=== PATIENT | female | born 1985 | race Caucasian/White ===

== ENCOUNTER 2016-11-13 04:15 | Emergency (ER) | payer BC, OTHER ==
[~2016-11-13] VITALS: Ht 170.2 cm; Wt 73.7 kg
[~2016-11-13 04:15] MED LIST: ADVIN25050 INH; ALBU1AER9 INH; AVLX/400 PO; PRED10TA PO; PRENTAB26 PO
[2016-11-13 04:20] VITALS: TEMP 36.6; Ht 170.2 cm; Wt 73.7 kg
[2016-11-13] MEDS ORDERED: SODIUM CHLORIDE 0.9% 1000ML 1,000 ML IV STA (04:35)
[2016-11-13] MEDS ORDERED: SODIUM CHLORIDE 0.9% 1000ML 1,000 ML IV ONE (04:35)
--- NOTE | 2016-11-13 04:43 | EMERGENCY ROOM VISIT NOTE ---
History Report prepared by Ginna: Carolyn Mcgregor Under the Supervision of: Dr. Hans Castillo M.D. First contact with patient: 04:24 Chief Complaint: ABDOMINAL PAIN Stated Complaint: ABDOMINAL PAIN,CRAMPS History of Present Illness The patient is a 31 year old female who presents to the Emergency Room with complaints of intermittent upper abdominal pain that began yesterday morning. She currently rates her discomfort as a 6/10 in severity. The patient states that each episode lasts 3-10 seconds, and denies that her pain feels similar to menstrual cramps. The patient states that she is currently 3.5 weeks . She states that she had no complications and had a vaginal delivery. The patient states that she is still having light bleeding and denies any lower abdominal pain. She denies any hematuria. The patient states that she started having diarrhea. She notes that she is currently has a headcold. The patient states that she is currently breast feeding, denying any breast tenderness or redness. She denies any current sore throat. The patient denies any previous surgeries. She notes a history of asthma. The patient denies any increased pain with breathing. She states that she just had her fourth baby, noting that she has had 5 previous pregnancies. Source of History: patient Onset: yesterday morning Position: abdomen (upper) Symptom Intensity: 6/10 Timing: intermittent Associated Symptoms: + diarrhea, No urinary symptoms Note: Associated symptoms: headcold Review of Systems See HPI for pertinent positives & negatives. A total of 10 systems reviewed and were otherwise negative. Past Medical & Surgical Medical Problems: (1) Asthma Old medical records were reviewed. Nurse's notes were reviewed and I agree with. Family History Diabetes mellitus FH: lung disease FHx: cancer Hypertension Seizures Social History Smoking Status: Never Smoker Alcohol Use: none Drug Use: none Marital Status: Housing Status: lives with family Current/Historical Medications Scheduled Mometasone Furoate-Formoterol (Dulera 100/5 Mcg), 2 PUFFS INH BID Multivit/Min/Iron/Fol Ac/Pren ( Vitamin), 1 TAB PO DAILY Scheduled PRN Albuterol Hfa (Ventolin Hfa), 2 PUFFS INH Q4H PRN for SOB/Wheezing Allergies Coded Allergies: No Known Allergies (Unverified , 11/13/16) Physical Exam Vital Signs Date Time Temp Pulse Resp B/P Pulse Ox O2 Delivery O2 Flow Rate FiO2 11/13/16 06:04 93 16 107/66 97 Room Air 11/13/16 04:20 36.6 78 20 110/80 96 Room Air Physical Exam General: Well developed well nourished, non-ill appearing young female, in no acute distress, breathing comfortably on room air. Normal speech HEENT: Normal cephalic atraumatic. Pupils are equal round and reactive to light. Extraocular movements are intact. Oropharynx is pink with moist mucous membranes. No swelling of the mouth lips or tongue. Neck: Supple with a midline trachea. No meningeal signs or stiffness, no JVD or bruits. No Stridor. Chest: Clear to auscultation bilaterally. No wheezes or rhonchi. No increased work of breathing. Heart: regular rate and rhythm. Abdomen: Minimally tender in the upper abdomen bilaterally. No mass. No lower abdominal tenderness. Negative hearn's sign. Soft, nondistended without rebound guarding or rigidity. Extremities: No cyanosis clubbing or edema. No calf tenderness or assymetry Spine/Back. Non tender to palpation. No CVA tenderness Skin: Good turgor without rashes. Neurologic exam: Cranial nerves two through 12 are intact. Motor and sensation are intact and symmetrical throughout. Medical Decision & Procedures ER Provider Diagnostic Interpretation: Chest x-ray per my interpretation reveals no pneumothorax, failure, or infiltrate. US results as stated below per my review and radiologist interpretation: US RUQ: No gallstones or evidence of cholecystitis. Caliber CBD upper limits normal. Possible mild right hydronephrosis. Correlate with UA. Liver prominent in size. Radiologist: Clarence Ramon MD Study ready at 0638 and inital results transmitted at 0675 Laboratory Results 11/13/16 04:45 Red Blood Count 5.14, Mean Corpuscular Volume 80.5, Mean Corpuscular Hemoglobin 26.7, Mean Corpuscular Hemoglobin Concent 33.1, Mean Platelet Volume 9.6, Neutrophils (%) (Auto) 84.1, Lymphocytes (%) (Auto) 8.7, Monocytes (%) (Auto) 5.2, Eosinophils (%) (Auto) 1.7, Basophils (%) (Auto) 0.2, Neutrophils # (Auto) 7.29, Lymphocytes # (Auto) 0.75, Monocytes # (Auto) 0.45, Eosinophils # (Auto) 0.15, Basophils # (Auto) 0.02 11/13/16 04:45 Test 11/13/16 04:45 11/13/16 04:50 White Blood Count 8.67 K/uL (4.8-10.8) Red Blood Count 5.14 M/uL (4.2-5.4) Hemoglobin 13.7 g/dL (12.0-16.0) Hematocrit 41.4 % (37-47) Mean Corpuscular Volume 80.5 fL (80-100) Mean Corpuscular Hemoglobin 26.7 pg (25-34) Mean Corpuscular Hemoglobin Concent 33.1 g/dl (32-36) Platelet Count 270 K/uL (130-400) Mean Platelet Volume 9.6 fL (7.4-10.4) Neutrophils (%) (Auto) 84.1 % Lymphocytes (%) (Auto) 8.7 % Monocytes (%) (Auto) 5.2 % Eosinophils (%) (Auto) 1.7 % Basophils (%) (Auto) 0.2 % Neutrophils # (Auto) 7.29 K/uL (1.4-6.5) Lymphocytes # (Auto) 0.75 K/uL (1.2-3.4) Monocytes # (Auto) 0.45 K/uL (0.11-0.59) Eosinophils # (Auto) 0.15 K/uL (0-0.5) Basophils # (Auto) 0.02 K/uL (0-0.2) RDW Standard Deviation 43.1 fL (36.4-46.3) RDW Coefficient of Variation 14.8 % (11.5-14.5) Immature Granulocyte % (Auto) 0.1 % Immature Granulocyte # (Auto) 0.01 K/uL (0.00-0.02) Anion Gap 8.0 mmol/L (3-11) Est Creatinine Clear Calc Drug Dose 100.4 ml/min Estimated GFR () 115.6 Estimated GFR (Non- 99.8 BUN/Creatinine Ratio 20.0 (10-20) Calcium Level 9.0 mg/dl (8.5-10.1) Total Bilirubin 0.5 mg/dl (0.2-1) Direct Bilirubin < 0.1 mg/dl (0-0.2) Aspartate Amino Transf (AST/SGOT) 20 U/L (15-37) Alanine Aminotransferase (ALT/SGPT) 40 U/L (12-78) Alkaline Phosphatase 155 U/L (45-117) Total Protein 7.9 gm/dl (6.4-8.2) Albumin 3.9 gm/dl (3.4-5.0) Lipase 171 U/L (73-393) Urine Color YELLOW Urine Appearance CLEAR (CLEAR) Urine pH 5.0 (4.5-7.5) Urine Specific [place] 1.027 (1.000-1.030) Urine Protein NEG (NEG) Urine Glucose (UA) NEG (NEG) Urine Ketones NEG (NEG) Urine Occult Blood 3+ (NEG) Urine Nitrite NEG (NEG) Urine Bilirubin NEG (NEG) Urine Urobilinogen NEG (NEG) Urine Leukocyte Esterase TRACE (NEG) Urine WBC (Auto) 1-5 /hpf (0-5) Urine RBC (Auto) 10-30 /hpf (0-4) Urine Hyaline Casts (Auto) 1-5 /lpf (0-5) Urine Epithelial Cells (Auto) >30 /lpf (0-5) Urine Bacteria (Auto) NEG (NEG) Laboratory studies as stated above per my review. Medications Administered Medications (Trade) Dose Ordered Sig/Karla Route Start Time Stop Time Status Last Admin Dose Admin Sodium Chloride 1,000 ml @ 999 mls/hr Q1H1M STAT IV 11/13/16 04:35 11/13/16 05:35 DC 11/13/16 04:35 999 MLS/HR Sodium Chloride (Nss 1000ml) 1,000 ml @ 150 mls/hr Q6H40M ONCE IV 11/13/16 04:35 11/13/16 10:00 DC 11/13/16 04:35 150 MLS/HR ED Course 0426: Past medical records reviewed. The patient was evaluated in room B10, and a complete history and physical examination were performed. 0435: Ordered Sodium Chloride 1000 ml @ 150 mls/hr IV, Sodium Chloride 1000 ml @ 999 mls/hr IV. 0626: I reevaluated the patient and she is resting comfortably. I discussed the exam findings with her and I discussed the treatment plan. She verbalized complete understanding and agreement. She is ready to go home. Medical Decision Differentials include, but are not limited to; pneumonia, bronchitis, pancreatitis, gallbladder disease, complication, UTI. This patient comes in as described above. She was placed in room B10. She is here for treatment and evaluation of intermittent upper abdominal pain. She is 3 weeks and has had no lower abdominal pain or bleeding or cramping. She's had no fever or chills. She's had no shortness breath or pleurisy. She had a cough and URI type symptom.s she is breast-feeding. She has had no breast tenderness or swelling. IV access established. She was hydrated with IV normal saline. She's had nausea, vomiting, diarrhea, and this is most likely is a viral illness blood work was obtained and data gallbladder ultrasound as well as a chest x-ray here urinalysis and culture was also ordered. Blood work was unremarkable. She has nothing to suggest infection or sepsis. She is nothing to suggest this is related to her she's no lower abdominal tenderness. Her gallbladder ultrasound was negative. Chest x- ray was unremarkable. She will be discharged home. I encouraged to follow-up with her regular doctor. Return if: increasing pain, worsening of symptoms, fever chills, any new problems or concerns. Impression Primary Impression: Upper abdominal pain Scribe Attestation The scribe's documentation has been prepared under my direction and personally reviewed by me in its entirety. I confirm that the note above accurately reflects all work, treatment, procedures, and medical decision making performed by me. Departure Information Dispostion Home / Self-Care Referrals Elsa White (PCP) Forms Call Back Authorization, HOME CARE DOCUMENTATION FORM, IMPORTANT VISIT INFORMATION Patient Instructions [facility] Additional Instructions Rest. Drink plenty of fluids. Return if: Increasing pain, fever or chills, worsening symptoms, lower abdominal pain, any new problems or concerns Use ibuprofen 400 mg every 6 hours as needed. Take with food May also use Tylenol/acetaminophen a maximum 650 mg every 6 hours. Do not take with any other medications that contain Tylenol/acetaminophen Follow-up with your doctor in 1-2 days for recheck.
[2016-11-13 05:08] LABS: BASO % 0.2 %; BASO ABS # 0.02 K/uL (0-0.2); COMPLETE YES; EOS % 1.7 %; HEMATOCRIT 41.4 % (37-47); IG% 0.1 %; LYMPH % 8.7 %; LYMPH ABS # 0.75 K/uL (1.2-3.4); MEAN CELL VOLUME 80.5 fL (80-100); MEAN CORPUSCULAR HEMOGLOBIN 26.7 pg (25-34); MEAN CORPUSCULAR HGB CONC 33.1 g/dl (32-36); MEAN PLATELET VOLUME 9.6 fL (7.4-10.4); MONO % 5.2 %; NEUT % 84.1 %; PLATELET COUNT 270 K/uL (130-400); RED BLOOD COUNT 5.14 M/uL (4.2-5.4); WHITE BLOOD COUNT 8.67 K/uL (4.8-10.8)
[2016-11-13 05:19] LABS: URINE APPEARANCE CLEAR (CLEAR); URINE BILIRUBIN NEG (NEG); URINE COLOR YELLOW; URINE EPITHELIAL CELL AUTO >30 /lpf (0-5); URINE NITRITE NEG (NEG); URINE SPECIFIC GRAVITY 1.027 (1.000-1.030); UROBILINOGEN NEG (NEG)
[2016-11-13 05:24] LABS: ALT/SGPT 40 U/L (12-78); AST/SGOT 20 U/L (15-37); BLOOD UREA NITROGEN 16 mg/dl (7-18); CARBON DIOXIDE 26 mmol/L (21-32); CHLORIDE 107 mmol/L (98-107); CREATININE 0.79 mg/dl (0.60-1.20); GLUCOSE 107 mg/dl (70-99); POTASSIUM 3.8 mmol/L (3.5-5.1); SODIUM 141 mmol/L (136-145)
[2016-11-13 05:25] LABS: MANUAL MICROSCOPIC REQUIRED? NO; REVIEW REQ? NO
[2016-11-13 05:26] LABS: ALKALINE PHOSPHATASE 155 U/L (45-117)
[2016-11-13 06:04] VITALS: BP 107/66; PULSE 93; O2SAT 97
[2016-11-13] MEDS ORDERED: VNTHFA/IN INH (06:12)
[2016-11-13] MEDS ORDERED: MOME100A INH (06:13)
--- NOTE | 2016-11-13 07:12 | DIAGNOSTIC IMAGING REPORT ---
ABDOMINAL ULTRASOUND, RIGHT UPPER QUADRANT HISTORY: Right upper quadrant abdominal pain. eval for gb disease. COMPARISON: Abdomen and pelvis CT 07/07/2011. FINDINGS: Pancreas: The pancreas demonstrates a normal echotexture. Liver: Mildly enlarged measuring 20 cm in length. Gallbladder: No gallbladder wall thickening. No gallstones. CBD: 5 mm. Right kidney: Mild fullness within the right renal collecting system without irving hydronephrosis. IMPRESSION: 1. Mild hepatomegaly. 2. Normal gallbladder. 3. Mild fullness within the right renal collecting system without irving hydronephrosis. Electronically signed by: Geronimo Newman M.D. 11/13/2016 7:11 AM Dictated Date/Time: 11/13/2016 7:09 AM
--- NOTE | 2016-11-13 07:23 | DIAGNOSTIC IMAGING REPORT ---
CHEST ONE VIEW PORTABLE HISTORY: Atypical CHEST PAIN COMPARISON: Chest 06/09/2013. FINDINGS: The lungs are clear. Cardiac silhouette is normal in size. No pleural effusions. No pneumothorax. IMPRESSION: No acute process. Electronically signed by: Geronimo Newman M.D. 11/13/2016 7:22 AM Dictated Date/Time: 11/13/2016 7:21 AM
== END 2016-11-13 06:39 | disposition home or self-care (01) ==
LOC: C.EDB 04:16
DX: O90.9 Complication of the puerperium, unspecified (principal); R10.10 Upper abdominal pain, unspecified; J45.909 Unspecified asthma, uncomplicated; Z83.3 Family history of diabetes mellitus; Z80.9 Family history of malignant neoplasm, unspecified; Z82.49 Family history of ischemic heart disease and other diseases of the circulatory system; Z82.0 Family history of epilepsy and other diseases of the nervous system

== ENCOUNTER 2023-12-28 11:41 | Inpatient (IN) ==
[2023-12-28] MEDS ORDERED: GENTAMICIN CONSULT ACTIVE PRN (12:22)
[2023-12-28] MEDS ORDERED: GENTAMICIN SULFATE 100 MG in DEXTROSE 5% 100 ML IV STA (12:22)
[2023-12-28] MEDS ORDERED: ceFAZolin 500 MG in SYRINGE 0 ML IV SCH (12:30)
[2023-12-28 12:50] LABS: Basophils # (auto) 0.08 K/uL (0.00-0.20); Basophils % (auto) 0.4 %; Eosinophils # (auto) 0.04 K/uL (0.00-0.50); Eosinophils % (auto) 0.2 %; Hematocrit (blood only) 30.6 % (37.0-47.0); Hemoglobin 10.3 g/dl (12.0-16.0); Immature Granulocytes # (auto) 0.17 K/uL (0.01-0.20); Immature Granulocytes % (auto) 0.8 %; Lymphocytes # (auto) 0.62 K/uL (1.20-3.40); Lymphocytes % (auto) 2.9 %; Mean Corpuscular Hemoglobin 28.8 pg (25.0-34.0); Mean Corpuscular Hgb Conc 33.7 g/dL (32.0-36.0); Mean Corpuscular Volume 85.5 fL (80.0-100.0); Mean Platelet Volume 10.3 fL (9.4-12.4); Monocytes # (auto) 1.48 K/uL (0.11-0.59); Neutrophils # (auto) 18.73 K/uL (1.40-6.50); Neutrophils % (auto) 88.7 %; Platelet Count 253 K/uL (130-400); RDW Coefficient of Variation 12.9 % (11.5-14.5); RDW Standard Deviation 40.1 fL (36.4-46.3); Red Blood Count 3.58 M/uL (4.20-5.40); White Blood Count 21.12 K/ul (4.8-10.8)
[2023-12-28] MEDS: MoRPHine SULFATE 4 MG/ML 1 ML CARP\\VIAL IV PRN (13:12)
[2023-12-28] MEDS ORDERED: ONDANSETRON INJ 2 MG/ML 2 ML VIAL IV PRN (13:19)
[2023-12-28] MEDS: CLINDAMYCIN/D5W 900 MG/50 ML BAG IV SCH (13:19)
[2023-12-28 13:31] LABS: Appearance Urine Clear (Clear); Bacteria Urine Automated 1+ (None Seen); Bilirubin Urine Negative (Negative); Blood Urine Negative (Negative); Cast Urine Automated 0-2 /lpf (0-2); Color Urine Dark Yellow; Glucose Urine UA 2+ (Negative); Ketones Urine 3+ (Negative); Leukocyte Esterase Urine Negative (Negative); Nitrite Urine Negative (Negative); Protein Urine 1+ (Negative); RBC Urine Automated 0-2 /hpf (0-2); Urobilinogen Urine Negative (Negative); pH Urine 5.5 (4.5-7.5)
[2023-12-28 13:52] LABS: Creatinine Clr Calc Pharmacy 172.8 ml/min; Est GFR (African American) 144.2 ml/min; Est GFR (Non-African American) 124.4 ml/min
--- NOTE | 2023-12-28 13:54 | Ultrasound Report ---
US pelvic limited CLINICAL HISTORY: 33 week gestation with severe RLQ pain. COMPARISON STUDY: [facility] 03/21/2023. Abdomen and pelvis CT 07/07/2011. FINDINGS: Real-time sonographic imaging of the right side the abdomen and pelvis was performed with r epresentative images cemented. The appendix was not identified. There is a small amount of gallbladde r sludge. No gallbladder wall thickening. Negative sonographic Magana sign. There are few small cysts within the right ovary measures approximately 1.2 cm. There is normal in size. There is normal color flow within the right ovary. The left ovary was obscured by overlying bowel gas. Mild fullness withi n the right renal collecting system without hydronephrosis. This is likely physiologic. The fetus is in a cephalic presentation and demonstrates a heart rate of 175 bpm. There is a right sided leroy centa which appears intact. IMPRESSION: 1. The appendix was not identified. 2. Normal right ovary. The left ovary was obscured by overlying bowel gas. 3. Gallbladder sludge. No gallbladder wall thickening. 4. heart rate was 175 bpm. ACT 112: Negative or not required by law. Electronically signed by: Geronimo Newman M.D. 12/28/2023 1:53 PM
[2023-12-28] MEDS: LACTATED RINGER'S 1,000 ML IV PRN (13:55)
[2023-12-28] MEDS: ceFAZolin 2000MG 2,000 MG/15 ML SYR IV SCH (13:58)
[2023-12-28] MEDS: GENTAMICIN SULFATE 120 MG in DEXTROSE 5% 100 ML IV ONE (14:03)
[2023-12-28] MEDS: ACETAMINOPHEN 500 MG TAB PO PRN (16:03)
--- NOTE | 2023-12-28 19:19 | Magnetic Resonance Report ---
MR pelvis wo con CLINICAL HISTORY: at 33 weeks RLQ pain TECHNIQUE: Multiplanar multisequence images were obtained of the pelvis without the administration of contrast. COMPARISON: None available at the time of this dictation. FINDINGS: Bowel: The appendix is normal. Lymph nodes: Unremarkable. Bladder: Unremarkable. Kidneys: Unremarkable. Reproductive organs: The fetus is in cephalic position. No gross abnormalities are seen. Vessels: Unremarkable. Abdominal wall: Unremarkable. Bones: Unremarkable. IMPRESSION: No acute abnormalities. The appendix is normal without evidence of appendicitis. The fetus is grossly unremarkable. ACT 112: Negative or not required by law. Electronically signed by: Catalino Marsh M.D. 12/28/2023 7:16 PM
[2023-12-28 21:08] LABS: Albumin Globulin Ratio 1.1 (0.9-2); Albumin Level 3.2 gm/dl (3.4-5.0); BUN Creatinine Ratio 13.6 (10-20); Bilirubin,Total 0.6 mg/dl (0.2-1.0); Calcium 8.3 mg/dl (8.6-10.3); Creatinine Clr Calc Pharmacy 188.5 ml/min; Est GFR (African American) 148.4 ml/min; Est GFR (Non-African American) 128.1 ml/min; Potassium 3.5 mmol/L (3.5-5.1); Total Protein 6.2 gm/dl (6.0-8.3)
[2023-12-28] MEDS: GENTAMICIN SULFATE 120 MG in DEXTROSE 5% 100 ML IV SCH (22:10)
--- NOTE | 2023-12-29 | Progress Note ---
Date of Service December 28, 2023 Assessment & Plan (1) Right lower quadrant abdominal pain during in third trimester: Plan: 1. . (2) UTI in , antepartum: Plan: 1. On triple antibx. antibiotics ampicillin gentamicin Patient maternal and tachycardia have both improved. Patient is not afebrile. Patient tolerated medication and dinner Will reevaluate patient in the morning with new set of labs Results & Data Vital Signs (Past 12 Hours) Vital Signs Temp Pulse Resp BP Pulse Ox O2 Del Method 12/28/23 23:53 96 12/28/23 23:53 99 H 12/28/23 23:48 102 H 12/28/23 23:48 91/47 L 12/28/23 23:45 95 12/28/23 23:45 107 H 12/28/23 23:40 94 12/28/23 23:40 99 H 12/28/23 23:35 94 12/28/23 23:35 99 H 12/28/23 23:30 93 12/28/23 23:30 99 H 12/28/23 23:25 93 12/28/23 23:25 98 H 12/28/23 23:20 93 12/28/23 23:20 99 H 12/28/23 23:15 92 12/28/23 23:15 96 H 12/28/23 23:10 93 12/28/23 23:10 97 H 12/28/23 23:06 90 12/28/23 23:06 94 H 12/28/23 23:05 92 12/28/23 23:05 94 H 12/28/23 23:00 92 12/28/23 23:00 95 H 12/28/23 22:59 90 12/28/23 22:59 95 H 12/28/23 22:55 93 12/28/23 22:55 99 H 12/28/23 22:50 93 12/28/23 22:50 99 H 12/28/23 22:45 93 12/28/23 22:45 97 H 12/28/23 22:40 93 12/28/23 22:40 98 H 12/28/23 22:35 94 12/28/23 22:35 105 H 12/28/23 22:30 93 12/28/23 22:30 99 H 12/28/23 22:25 93 12/28/23 22:25 99 H 12/28/23 22:20 93 12/28/23 22:20 100 H 12/28/23 22:15 93 12/28/23 22:15 102 H 12/28/23 22:10 94 12/28/23 22:10 99 H 12/28/23 22:05 95 12/28/23 22:05 96 H 12/28/23 22:00 95 12/28/23 22:00 94 H 12/28/23 21:55 95 12/28/23 21:55 95 H 12/28/23 21:50 94 12/28/23 21:50 93 H 12/28/23 21:45 94 12/28/23 21:45 94 H 12/28/23 21:40 95 12/28/23 21:40 95 H 12/28/23 21:35 96 12/28/23 21:35 96 H 12/28/23 21:30 97 12/28/23 21:30 102 H 12/28/23 21:30 16 12/28/23 21:30 36.7 C 16 12/28/23 21:25 96 12/28/23 21:25 97 H 12/28/23 20:49 97 12/28/23 20:49 103 H 12/28/23 20:44 97 12/28/23 20:44 102 H 12/28/23 20:39 97 12/28/23 20:39 93 H 12/28/23 20:34 98 12/28/23 20:34 98 H 12/28/23 20:29 96 12/28/23 20:29 97 H 12/28/23 20:24 97 12/28/23 20:24 100 H 12/28/23 20:19 95 12/28/23 20:19 94 H 12/28/23 20:06 96 12/28/23 20:06 101 H 12/28/23 20:01 97 12/28/23 20:01 105 H 12/28/23 19:56 96 12/28/23 19:56 102 H 12/28/23 19:51 96 12/28/23 19:51 102 H 12/28/23 19:46 96 12/28/23 19:46 103 H 12/28/23 19:41 96 05 19:41 106 H 05/06/24 19:36 97 12/28/23 19:36 104 H 12/28/23 19:32 94 12/28/23 19:32 100 H 12/28/23 19:31 94 12/28/23 19:31 100 H 12/28/23 19:26 96 12/28/23 19:26 100 H 12/28/23 19:21 95 12/28/23 19:21 97 H 12/28/23 19:16 36.9 C 16 12/28/23 19:16 Room Air 12/28/23 19:16 95 12/28/23 19:16 107 H 12/28/23 19:15 16 12/28/23 19:15 36.9 C 16 12/28/23 19:14 100 H 12/28/23 19:14 100/54 L 12/28/23 19:11 95 12/28/23 19:11 102 H 12/28/23 19:06 94 12/28/23 19:06 92 H 12/28/23 19:01 95 12/28/23 19:01 99 H 12/28/23 18:56 95 12/28/23 18:56 96 H 12/28/23 18:51 95 12/28/23 18:51 101 H 12/28/23 18:46 95 12/28/23 18:46 98 H 12/28/23 18:41 95 12/28/23 18:41 99 H 12/28/23 18:36 95 12/28/23 18:36 102 H 12/28/23 18:31 95 12/28/23 18:31 94 H 12/28/23 18:26 96 12/28/23 18:26 97 H 12/28/23 18:21 95 12/28/23 18:21 96 H 12/28/23 18:16 96 12/28/23 18:16 103 H 12/28/23 18:11 97 12/28/23 18:11 102 H 12/28/23 18:09 94 12/28/23 18:09 102 H 12/28/23 18:09 90/44 L 12/28/23 18:06 96 12/28/23 18:06 109 H 12/28/23 18:01 95 12/28/23 18:01 99 H 12/28/23 17:56 94 12/28/23 17:56 102 H 12/28/23 17:51 95 12/28/23 17:51 101 H 12/28/23 17:46 96 12/28/23 17:46 103 H 12/28/23 17:41 96 12/28/23 17:41 108 H 12/28/23 17:40 37.2 C 12/28/23 17:39 94 12/28/23 17:39 102 H 12/28/23 17:36 96 12/28/23 17:36 104 H 12/28/23 16:10 94 12/28/23 16:10 122 H 12/28/23 16:08 94 12/28/23 16:08 122 H 12/28/23 16:07 123 H 12/28/23 16:07 92/48 L 12/28/23 16:05 95 12/28/23 16:05 126 H 12/28/23 16:02 94 12/28/23 16:02 117 H 12/28/23 16:00 95 12/28/23 16:00 119 H 12/28/23 15:56 94 12/28/23 15:56 117 H 12/28/23 15:55 22 12/28/23 15:55 39.3 C H 22 12/28/23 15:55 95 12/28/23 15:55 120 H 12/28/23 15:36 94 12/28/23 15:36 124 H 12/28/23 15:35 94 12/28/23 15:35 125 H 12/28/23 15:31 94 12/28/23 15:31 128 H 12/28/23 15:29 94 12/28/23 15:29 126 H 12/28/23 15:26 95 12/28/23 15:26 128 H 12/28/23 15:23 93 12/28/23 15:23 129 H 12/28/23 15:21 95 12/28/23 15:21 132 H 12/28/23 15:17 94 12/28/23 15:17 123 H 12/28/23 15:16 94 12/28/23 15:16 124 H 12/28/23 15:11 94 12/28/23 15:11 118 H 12/28/23 15:10 94 05/06/24 15:10 117 H 12/28/23 15:06 96 12/28/23 15:06 117 H 12/28/23 15:04 94 12/28/23 15:04 127 H 12/28/23 15:01 95 12/28/23 15:01 118 H 12/28/23 14:56 96 12/28/23 14:56 118 H 12/28/23 14:51 96 12/28/23 14:51 118 H 12/28/23 14:46 96 12/28/23 14:46 116 H 12/28/23 14:45 94 12/28/23 14:45 116 H 12/28/23 14:41 96 12/28/23 14:41 119 H 12/28/23 14:36 96 12/28/23 14:36 118 H 12/28/23 14:31 97 12/28/23 14:31 116 H 12/28/23 14:26 98 12/28/23 14:26 118 H 12/28/23 14:21 98 12/28/23 14:21 118 H 12/28/23 14:16 99 12/28/23 14:16 120 H 12/28/23 14:11 99 12/28/23 14:11 119 H 12/28/23 14:10 37.9 C H 20 12/28/23 14:06 99 12/28/23 14:06 121 H 12/28/23 14:01 99 12/28/23 14:01 119 H 12/28/23 13:56 100 12/28/23 13:56 122 H 12/28/23 13:51 100 12/28/23 13:51 114 H 12/28/23 13:46 100 12/28/23 13:46 115 H 12/28/23 13:41 100 12/28/23 13:41 118 H 12/28/23 13:36 100 12/28/23 13:36 126 H 12/28/23 13:31 100 12/28/23 13:31 123 H 12/28/23 13:26 99 12/28/23 13:26 123 H 12/28/23 13:21 100 12/28/23 13:21 122 H 12/28/23 13:16 100 12/28/23 13:16 120 H 12/28/23 13:11 100 12/28/23 13:11 111 H 12/28/23 13:06 100 12/28/23 13:06 117 H 12/28/23 13:01 100 12/28/23 13:01 121 H 12/28/23 12:56 100 12/28/23 12:56 123 H 12/28/23 12:51 100 12/28/23 12:51 117 H 12/28/23 12:46 100 12/28/23 12:46 115 H 12/28/23 12:41 100 12/28/23 12:41 116 H 12/28/23 12:36 100 12/28/23 12:36 117 H 12/28/23 12:31 99 12/28/23 12:31 116 H 12/28/23 12:26 97 12/28/23 12:26 122 H 12/28/23 12:21 98 12/28/23 12:21 120 H 12/28/23 12:16 98 12/28/23 12:16 120 H 12/28/23 12:01 38.9 C H 16 96
--- NOTE | 2023-12-29 00:17 | History & Physical Report ---
Date of Service December 29, 2023 History of Present Illness Chief Complaint: r right lower quadrant pain since Thursday.. Primary Care Provider: Fallon Morris DO Patient patient is a 38-year-old G8, P4 EDC 02/11/2024 making her 33 weeks and 4 days today. Patient present to labor and delivery unannounced. She is a patient of Dr. Carlton and began to experience right lower quadrant pain on S at. Pain has not increasingly gotten worse. She denies any shortness of breath. She had nausea but no vomiting. She denies dysuria urgency or frequency or gross hematuria. She describes the pain as achy nonradiating patient. Denies any history of renal stones in the past or in this . She took Tylenol on the morning of admission with mild improvement in her pain. On arrival to L abor and delivery. pt reports severe discomfort. She rated her pain 7 out of 10 as stated above she had nausea but no vomiting. She denied constipation. Pulse on arrival was in the 120s to 130s. Patient's temperature was 102. There was tachycardia on initial monitoring. IV fluids antibiotics and Tylenol was given to patient. CBC CMP and a right pelvic ultrasound ordered differential d iagnosis at this point included renal etiology bowel obstruction, urinary tract infection, ovarian torsion and appendicitis.. The ultrasound showed no hydronephrosis or renal stones. There was no ovarian torsion. There was good Doppler flow to the right ovary and ovary appeared unremarkable. The appendix however could not be visualized on ultrasound. After discussion with the radiologist an MRI without contrast was ordered. The MRI however was negative for appendicitis. Review of the labs showed elevated white count and urine was positive for bacteria. Patient has responded very well to triple antibiotics treatment and IV hydration and pain i improved with morphine. Allergies Allergy/AdvReac Type Severity Reaction Status Date / Time No Known Allergies Allergy Verified 03/21/23 20:51 Home Medications Medication Instructions Recorded Confirmed Type albuterol sulfate 90 mcg/actuation 1 - 2 puff inhalation QID PRN 11/04/20 12/28/23 History aerosol inhaler Shortness Of Breath Or Wheezing mometasone-formoterol HFA 200 2 puff inhalation BID 11/04/20 12/28/23 History mcg-5 mcg/actuation aerosol inhaler (Dulera) Past Med/Surg History Medical History (Updated 12/28/23 @ 23:55 by Gianni Conway MD) Asthma Surgical History [place] teeth removed Family History Father Epilepsy Social History Smoking Status: Never smoker Do You Dip or Chew Tobacco: No; Hx Alcohol Use: No Hx Substance Use: No Preferred Language: Guatemalan Communication Ability: Effective Mechanical Engineering Director Required: Yes Beliefs That Will Affect Care: None Current Living Situation: Spouse Current Living Situation Comment: home Other Information That Helps Us Care for You: No Feels Safe at Home: Yes Safety Concerns: Feels Safe At This Time Assistive Devices: None Results & Data Results & Data Vital Signs (Past 12 Hours) Vital Signs Temp Pulse Resp BP Pulse Ox O2 Del Method 12/28/23 23:58 97 12/28/23 23:58 96 H 12/28/23 23:53 96 12/28/23 23:53 99 H 12/28/23 23:48 102 H 12/28/23 23:48 91/47 L 12/28/23 23:45 95 12/28/23 23:45 107 H 12/28/23 23:40 94 12/28/23 23:40 99 H 12/28/23 23:35 94 12/28/23 23:35 99 H 12/28/23 23:30 93 12/28/23 23:30 99 H 12/28/23 23:25 93 12/28/23 23:25 98 H 12/28/23 23:20 93 12/28/23 23:20 99 H 12/28/23 23:15 92 12/28/23 23:15 96 H 12/28/23 23:10 93 12/28/23 23:10 97 H 12/28/23 23:06 90 12/28/23 23:06 94 H 12/28/23 23:05 92 12/28/23 23:05 94 H 12/28/23 23:00 92 12/28/23 23:00 95 H 12/28/23 22:59 90 12/28/23 22:59 95 H 12/28/23 22:55 93 12/28/23 22:55 99 H 12/28/23 22:50 93 12/28/23 22:50 99 H 12/28/23 22:45 93 12/28/23 22:45 97 H 12/28/23 22:40 93 12/28/23 22:40 98 H 12/28/23 22:35 94 12/28/23 22:35 105 H 12/28/23 22:30 93 12/28/23 22:30 99 H 12/28/23 22:25 93 12/28/23 22:25 99 H 12/28/23 22:20 93 12/28/23 22:20 100 H 12/28/23 22:15 93 12/28/23 22:15 102 H 12/28/23 22:10 94 12/28/23 22:10 99 H 12/28/23 22:05 95 12/28/23 22:05 96 H 12/28/23 22:00 95 12/28/23 22:00 94 H 12/28/23 21:55 95 12/28/23 21:55 95 H 12/28/23 21:50 94 12/28/23 21:50 93 H 12/28/23 21:45 94 12/28/23 21:45 94 H 12/28/23 21:40 95 12/28/23 21:40 95 H 12/28/23 21:35 96 12/28/23 21:35 96 H 12/28/23 21:30 97 12/28/23 21:30 102 H 12/28/23 21:30 16 12/28/23 21:30 36.7 C 16 12/28/23 21:25 96 12/28/23 21:25 97 H 12/28/23 20:49 97 12/28/23 20:49 103 H 12/28/23 20:44 97 12/28/23 20:44 102 H 12/28/23 20:39 97 12/28/23 20:39 93 H 12/28/23 20:34 98 12/28/23 20:34 98 H 12/28/23 20:29 96 12/28/23 20:29 97 H 12/28/23 20:24 97 12/28/23 20:24 100 H 12/28/23 20:19 95 12/28/23 20:19 94 H 0506/24 20:06 96 12/28/23 20:06 101 H 12/28/23 20:01 97 12/28/23 20:01 105 H 12/28/23 19:56 96 12/28/23 19:56 102 H 12/28/23 19:51 96 12/28/23 19:51 102 H 12/28/23 19:46 96 12/28/23 19:46 103 H 12/28/23 19:41 96 12/28/23 19:41 106 H 12/28/23 19:36 97 12/28/23 19:36 104 H 12/28/23 19:32 94 12/28/23 19:32 100 H 12/28/23 19:31 94 12/28/23 19:31 100 H 12/28/23 19:26 96 12/28/23 19:26 100 H 12/28/23 19:21 95 12/28/23 19:21 97 H 12/28/23 19:16 36.9 C 16 12/28/23 19:16 Room Air 12/28/23 19:16 95 12/28/23 19:16 107 H 12/28/23 19:15 16 12/28/23 19:15 36.9 C 16 12/28/23 19:14 100 H 12/28/23 19:14 100/54 L 12/28/23 19:11 95 12/28/23 19:11 102 H 12/28/23 19:06 94 12/28/23 19:06 92 H 12/28/23 19:01 95 12/28/23 19:01 99 H 12/28/23 18:56 95 12/28/23 18:56 96 H 12/28/23 18:51 95 12/28/23 18:51 101 H 12/28/23 18:46 95 12/28/23 18:46 98 H 12/28/23 18:41 95 12/28/23 18:41 99 H 12/28/23 18:36 95 12/28/23 18:36 102 H 12/28/23 18:31 95 12/28/23 18:31 94 H 12/28/23 18:26 96 12/28/23 18:26 97 H 12/28/23 18:21 95 12/28/23 18:21 96 H 12/28/23 18:16 96 12/28/23 18:16 103 H 12/28/23 18:11 97 12/28/23 18:11 102 H 12/28/23 18:09 94 12/28/23 18:09 102 H 12/28/23 18:09 90/44 L 12/28/23 18:06 96 12/28/23 18:06 109 H 12/28/23 18:01 95 12/28/23 18:01 99 H 12/28/23 17:56 94 12/28/23 17:56 102 H 12/28/23 17:51 95 12/28/23 17:51 101 H 12/28/23 17:46 96 12/28/23 17:46 103 H 12/28/23 17:41 96 12/28/23 17:41 108 H 12/28/23 17:40 37.2 C 12/28/23 17:39 94 12/28/23 17:39 102 H 12/28/23 17:36 96 12/28/23 17:36 104 H 12/28/23 16:10 94 12/28/23 16:10 122 H 12/28/23 16:08 94 12/28/23 16:08 122 H 12/28/23 16:07 123 H 12/28/23 16:07 92/48 L 12/28/23 16:05 95 12/28/23 16:05 126 H 12/28/23 16:02 94 12/28/23 16:02 117 H 12/28/23 16:00 95 12/28/23 16:00 119 H 12/28/23 15:56 94 12/28/23 15:56 117 H 12/28/23 15:55 22 12/28/23 15:55 39.3 C H 22 12/28/23 15:55 95 12/28/23 15:55 120 H 12/28/23 15:36 94 12/28/23 15:36 124 H 12/28/23 15:35 94 12/28/23 15:35 125 H 12/28/23 15:31 94 12/28/23 15:31 128 H 12/28/23 15:29 94 12/28/23 15:29 126 H 12/28/23 15:26 95 05/06/24 15:26 128 H 12/28/23 15:23 93 12/28/23 15:23 129 H 12/28/23 15:21 95 12/28/23 15:21 132 H 12/28/23 15:17 94 12/28/23 15:17 123 H 12/28/23 15:16 94 12/28/23 15:16 124 H 12/28/23 15:11 94 12/28/23 15:11 118 H 12/28/23 15:10 94 12/28/23 15:10 117 H 12/28/23 15:06 96 12/28/23 15:06 117 H 12/28/23 15:04 94 12/28/23 15:04 127 H 12/28/23 15:01 95 12/28/23 15:01 118 H 12/28/23 14:56 96 12/28/23 14:56 118 H 12/28/23 14:51 96 12/28/23 14:51 118 H 12/28/23 14:46 96 12/28/23 14:46 116 H 12/28/23 14:45 94 12/28/23 14:45 116 H 12/28/23 14:41 96 12/28/23 14:41 119 H 12/28/23 14:36 96 12/28/23 14:36 118 H 12/28/23 14:31 97 12/28/23 14:31 116 H 12/28/23 14:26 98 12/28/23 14:26 118 H 12/28/23 14:21 98 12/28/23 14:21 118 H 12/28/23 14:16 99 12/28/23 14:16 120 H 12/28/23 14:11 99 12/28/23 14:11 119 H 12/28/23 14:10 37.9 C H 20 12/28/23 14:06 99 12/28/23 14:06 121 H 12/28/23 14:01 99 12/28/23 14:01 119 H 12/28/23 13:56 100 12/28/23 13:56 122 H 12/28/23 13:51 100 12/28/23 13:51 114 H 12/28/23 13:46 100 12/28/23 13:46 115 H 12/28/23 13:41 100 12/28/23 13:41 118 H 12/28/23 13:36 100 12/28/23 13:36 126 H 12/28/23 13:31 100 12/28/23 13:31 123 H 12/28/23 13:26 99 12/28/23 13:26 123 H 12/28/23 13:21 100 12/28/23 13:21 122 H 12/28/23 13:16 100 12/28/23 13:16 120 H 12/28/23 13:11 100 12/28/23 13:11 111 H 12/28/23 13:06 100 12/28/23 13:06 117 H 12/28/23 13:01 100 12/28/23 13:01 121 H 12/28/23 12:56 100 12/28/23 12:56 123 H 12/28/23 12:51 100 12/28/23 12:51 117 H 12/28/23 12:46 100 12/28/23 12:46 115 H 12/28/23 12:41 100 12/28/23 12:41 116 H 12/28/23 12:36 100 12/28/23 12:36 117 H 12/28/23 12:31 99 12/28/23 12:31 116 H 12/28/23 12:26 97 12/28/23 12:26 122 H 12/28/23 12:21 98 12/28/23 12:21 120 H 12/28/23 12:16 98 12/28/23 12:16 120 H 12/28/23 12:01 38.9 C H 16 96 Code Status & VTE Plan VTE Prophylaxis Plan VTE Prophylaxis will be ordered: No
--- OUTSIDE RECORDS SUMMARY | 2023-12-29 01:43 | External Medical Summary | Summary of Care ---
Author Name Unknown Organization [facility] Address [address] [place] [address] Phone [phone] Care Team Providers Care Grinder Tender Name Role Phone Elsa White Primary Care Provider [phone] Reason for Visit * Reason Onset Date Comments Appointment 09/23/2023 Anatomy Scan ord ered by Dr. Carlton Encounter Details Date Type Department Care Team (Late st Contact Info) Description 09/23/2023 Telephone Gynecology/Obstetrics [facility] [address] [place] [address] Mario Carlton MD [address] [place] [address], [place] [address] Appointment (Anatomy Scan ordered by Dr. Forman.. Allergies Active Allergy Reactions Criticality Noted Date Comments Moxifloxacin Hcl In Nacl 12/10/2011 GI problems Kiwi Extract 03/06/2020 Fruit causes symptoms- itching Montelukast Psych complications 03/06/2020 strange dreams and increased anxiety documented as of this encounter (statuses as of 10/01/2023) Medications Medication Sig Dispensed Refills Start Date End Date Status MUCINEX D 60-600 MG PO [id number]:Acute sinusitis 1 or 2 pills by mouth twice a day for congestion with plenty of water as needed. Do not cut, crush or chew 30 2 10/05/2009 Active VALVED [employer] CHAMBER DEVIIndications:Asthm a, moderate persistent use with Dulera twice a day 1 Device 2 03/28/2013 Active azithromycin (ZITHROMAX) 250 MG TabletIndications:Mod erate persistent asthma with acute exacerbation Take 2 tabs by mouth on the first day, then 1 tab daily on days two through five. As Asthma rescue kit 6 Tab 3 10/27/2017 Active albuterol (VENTOLIN HFA) 108 (90 BASE) MCG/ACT inhaler Inhale two puffs through spacer every 4 hours as needed. 18 g 6 10/27/2017 Active albuterol sulfate (PROVENTIL) (2.5 MG/3ML) 0.083% nebulizer solutionIndications:A sthma with severity to be determined 3 ml vial in nebulizer every 4 hours as needed, use in place of rescue inhaler 90 Vial 2 08/02/2018 Active predniSONE (DELTASONE) 20 MG TabletIndications:Mod erate persistent asthma with acute exacerbation Take 2 Tabs by mouth daily. For 5 days as Asthma Rescue kit 10 Tab 0 03/14/2019 Active Respiratory Therapy Supplies (NEBULIZER) DEVIIndications:Moder ate persistent asthma with acute exacerbation as directed, dx code J45.41 1 Each 0 11/17/2019 Active Mometasone Furo-Formoterol Fum (DULERA) 100-5 MCG/ACT Inhaler Inhale 2 Puffs by mouth 2 times a day. 13 g 11 03/06/2020 Active documented as of this encounter (statuses as of 10/01/2023) Active Problems Problem Noted Date Diagnosed Date Moderate persistent asthma without complication 03/01/2012 Cellulitis of face 10/23/2002 TOOTH ERUPTION DISTURB 10/23/2002 Varicella without complication BENIGN NEOPLASM SKIN NOS documented as of this encounter (statuses as of 10/01/2023) Resolved Problems Problem Noted Date Diagnosed Date Resolved Date Asthma with severity to be determined 12/05/2011 03/01/2012 Overview: ICD-10 update of inactive term documented as of this encounter (statuses as of 10/01/2023) Immunizations Name Administration Dates Next Due Seasonal Influenza, Split, IIV3, With Preserve, Inj 05/09/2016 documented as of this encounter Social History Tobacco Use Types Packs/Day Years Used Date Smoking Tobacco: Former Cigarettes 0.8 0.5 Q uit: 08/10/2005 Smokeless Tobacco: Never Alcohol Use Standard Drinks/Week Comments No 0 (1 standard drink = 0.6 oz pur e alcohol) occ Sex and Gender Information Value Date Recorded Sex Assigned at Not on file Gender Identity Not on file Sexual Orientation Not on file Job Start Date Occupation Industry Not on file Not on file Not on file documented as of this encounter Miscellaneous Notes * Telephone Encounter - Amada Stoddard OSA - 09/23/2023 9:41 AM EST Tried calling pt to schedule Anatomy scan after 10/03/2023 that was ordered by Dr. Carlton. No answer and voicemail was full. MyG sent documented in this encounter Plan of Treatment Health Maintenance Due Date Last Done Comments COVID-19 Vaccine (#1) 1985 Depression Screening 1997 DTaP,Tdap,and Td Vaccines (6 - Tdap) 04/07/1997 04/06/1997, 06/10/1989, 05/10/1986, Additional history exists Hepatitis C Screening 2003 Pap Smear 09/20/2012 09/20/2009 Cervical Cancer Screening 2015 HPV/Co-Test 2015 Pneumococcal Vaccine: Pediatrics (0 to 5 Years) and At-Risk Patients (6 to 64 Years) (2 - PCV) 04/17/2015 04/17/2014 Influenza Vaccine (FLU shot) (#1) 2023 05/09/2016, 06/14/2013, 06/24/2012 Hepatitis B Completed 08/29/1997, 03/24, 03/15/1996 GARDASIL-HPV IMMUNIZATION SERIES Aged Out No longer eligible based on patient's age to complete this topic MENINGOCOCCAL (MENACTRA/MENVEO) Aged Out No longer eligible based on patient's age to complete this topic documented as of this encounter Medical Devices Not on filedocumented as of this encounter Care Teams Grinder Tender Relationship Specialty Start Date End Date Elsa White CRNP [address] [place] [address] PCP - General Nurse Practitioner 03/28/13 documented as of this encounter
[2023-12-29 06:30] LABS: Basophils # (auto) 0.08 K/uL (0.00-0.20); Basophils % (auto) 0.4 %; Eosinophils # (auto) 0.07 K/uL (0.00-0.50); Eosinophils % (auto) 0.3 %; Hematocrit (blood only) 27.3 % (37.0-47.0); Hemoglobin 8.9 g/dl (12.0-16.0); Lymphocytes # (auto) 0.88 K/uL (1.20-3.40); Lymphocytes % (auto) 4.2 %; Mean Corpuscular Hemoglobin 28.6 pg (25.0-34.0); Mean Corpuscular Hgb Conc 32.6 g/dL (32.0-36.0); Mean Corpuscular Volume 87.8 fL (80.0-100.0); Mean Platelet Volume 10.3 fL (9.4-12.4); Monocytes # (auto) 1.44 K/uL (0.11-0.59); Monocytes % (auto) 6.9 %; Neutrophils # (auto) 18.23 K/uL (1.40-6.50); Neutrophils % (auto) 87.2 %; Platelet Count 233 K/uL (130-400); RDW Coefficient of Variation 13.2 % (11.5-14.5); RDW Standard Deviation 41.7 fL (36.4-46.3); Red Blood Count 3.11 M/uL (4.20-5.40)
[2023-12-29 06:33] LABS: Albumin Globulin Ratio 1.1 (0.9-2); BUN Creatinine Ratio 10.9 (10-20); Bilirubin,Total 0.3 mg/dl (0.2-1.0); Creatinine Clr Calc Pharmacy 180.3 ml/min; Est GFR (African American) 146.3 ml/min; Est GFR (Non-African American) 126.2 ml/min; Globulin 2.7 gm/dl (2.5-4.0); Potassium 3.4 mmol/L (3.5-5.1); Total Protein 5.7 gm/dl (6.0-8.3)
[2023-12-29] MEDS ORDERED: ALBUTEROL HFA 8 GM INHALER INH PRN (07:48)
--- NOTE | 2023-12-29 07:52 | Obstetrical Progress Note ---
Date of Service December 29, 2023 Assessment & Plan (1) 33 weeks gestation of : Plan: Continuous monitoring SCDs while in bed (2) UTI in , antepartum: (3) Sepsis: Plan: met sepsis criteria based on hypotension, maternal tachycardia, fevers and suspected pyelonephritis Continue IV abx for 48 hrs, and follow cultures Patient updated at bedside and agreeable (4) Right lower quadrant abdominal pain during in third trimester: Plan: resolved Subjective Patient comfortable lying in bed she has been able to ambulate to go to the bathroom. Notes good movement. Notes approximately contraction once an hour, she was anitha more overnight and was checked and found to be closed. She denies any leaking of fluid or vaginal bleeding. Feels much better and currently is not having any pain. No fevers or shortness of breath at this time Review of Systems Review of Systems: All systems reviewed & are unremarkable except as noted in HPI & below Physical Exam Constitutional: WD/WN, vitals as above Respiratory: normal respiratory effort, lungs clear to auscultation Cardiovascular: RRR, no murmur, no edema Gastrointestinal (Abdomen): normal bowel sounds, soft, nontender, no hepatosplenomegaly Gravid uterus Genitourinary: heart tracing: Baseline 1 25-1 30, moderate variability, positive accelerations no decelerations, category 1 tracing Tocometer: Irritability Results & Data Vital Signs (Past 12 Hours) Vital Signs Temp Pulse Resp BP Pulse Ox 12/29/23 07:23 93 H 104/62 12/29/23 07:22 96 H 99 12/29/23 04:10 80 95 12/29/23 04:05 82 95 12/29/23 04:00 84 96 12/29/23 03:55 86 94 12/29/23 03:51 36.5 C 74 16 91/45 L 12/29/23 03:50 85 98 12/29/23 03:39 95 H 96 12/29/23 03:34 87 96 12/29/23 03:29 96 H 94 12/29/23 03:24 81 95 12/29/23 03:19 83 96 12/29/23 01:18 88 95 12/29/23 01:13 83 93 12/29/23 01:08 91 H 94 12/29/23 01:03 106 H 96 12/29/23 00:58 93 H 95 12/29/23 00:53 94 H 96 12/29/23 00:48 94 H 95 12/29/23 00:43 98 H 96 12/29/23 00:38 99 H 96 12/29/23 00:33 95 H 95 12/29/23 00:28 89 95 12/29/23 00:23 89 95 12/29/23 00:18 90 95 12/29/23 00:13 94 H 95 12/29/23 00:08 94 H 95 12/29/23 00:03 97 H 96 12/28/23 23:58 97 12/28/23 23:58 96 H 12/28/23 23:53 96 12/28/23 23:53 99 H 12/28/23 23:48 18 12/28/23 23:48 36.7 C 18 12/28/23 23:48 102 H 12/28/23 23:48 91/47 L 12/28/23 23:45 95 12/28/23 23:45 107 H 12/28/23 23:40 94 12/28/23 23:40 99 H 12/28/23 23:35 94 12/28/23 23:35 99 H 12/28/23 23:30 93 12/28/23 23:30 99 H 12/28/23 23:25 93 12/28/23 23:25 98 H 12/28/23 23:20 93 12/28/23 23:20 99 H 12/28/23 23:15 92 12/28/23 23:15 96 H 12/28/23 23:10 93 12/28/23 23:10 97 H 12/28/23 23:06 90 12/28/23 23:06 94 H 12/28/23 23:05 92 12/28/23 23:05 94 H 12/28/23 23:00 92 12/28/23 23:00 95 H 12/28/23 22:59 90 12/28/23 22:59 95 H 12/28/23 22:55 93 12/28/23 22:55 99 H 12/28/23 22:50 93 12/28/23 22:50 99 H 12/28/23 22:45 93 12/28/23 22:45 97 H 12/28/23 22:40 93 12/28/23 22:40 98 H 05 22:35 94 12/28/23 22:35 105 H 12/28/23 22:30 93 12/28/23 22:30 99 H 12/28/23 22:25 93 12/28/23 22:25 99 H 12/28/23 22:20 93 12/28/23 22:20 100 H 12/28/23 22:15 93 12/28/23 22:15 102 H 12/28/23 22:10 94 12/28/23 22:10 99 H 12/28/23 22:05 95 12/28/23 22:05 96 H 12/28/23 22:00 95 12/28/23 22:00 94 H 12/28/23 21:55 95 12/28/23 21:55 95 H 12/28/23 21:50 94 12/28/23 21:50 93 H 12/28/23 21:45 94 12/28/23 21:45 94 H 12/28/23 21:40 95 12/28/23 21:40 95 H 12/28/23 21:35 96 12/28/23 21:35 96 H 12/28/23 21:30 97 12/28/23 21:30 102 H 12/28/23 21:30 16 12/28/23 21:30 36.7 C 16 12/28/23 21:25 96 12/28/23 21:25 97 H 12/28/23 20:49 97 12/28/23 20:49 103 H 12/28/23 20:44 97 12/28/23 20:44 102 H 12/28/23 20:39 97 12/28/23 20:39 93 H 12/28/23 20:34 98 12/28/23 20:34 98 H 12/28/23 20:29 96 12/28/23 20:29 97 H 12/28/23 20:24 97 12/28/23 20:24 100 H 12/28/23 20:19 95 12/28/23 20:19 94 H 12/28/23 20:06 96 12/28/23 20:06 101 H 12/28/23 20:01 97 12/28/23 20:01 105 H 12/28/23 19:56 96 12/28/23 19:56 102 H 12/28/23 19:51 96 12/28/23 19:51 102 H (3) Sepsis Sepsis type: sepsis due to unspecified organism Sepsis acute organ dysfunction status: without acute organ dysfunction Qualified Code(s): A41.9 - Sepsis, unspecified organism
[2023-12-29] MEDS ORDERED: OXYTOCIN 30 UNITS/NSS 30 UNITS/500 ML BAG IV PRN (08:17)
[2023-12-29] MEDS: PRENATAL VITAMIN 1 TAB PO SCH (10:00)
[2023-12-29] MEDS: FLUTICASONE/VILANTEROL 200/25MCG 14 PUFFS/INHALER INH SCH (11:30)
[2023-12-29] MEDS: cefTRIAXone SODIUM 2,000 MG/50 ML BAG IV SCH (12:45)
[2023-12-29] MEDS: diphenhydrAMINE Capsule 25 MG CAP PO ONE (12:49)
[2023-12-29] MEDS ORDERED: Nursing to Pharmacy Communication SCH ×2 (13:00→13:30)
[2023-12-29] MEDS: ACETAMINOPHEN 500 MG TAB PO SCH (13:11)
[2023-12-29] MEDS: FERROUS SULFATE 325 MG TAB PO SCH (17:54)
[2023-12-29] MEDS: ACETAMINOPHEN 500 MG TAB PO PRN (19:31)
[2023-12-29] MEDS: DOCUSATE SODIUM 100 MG CAP PO SCH (20:55)
[2023-12-29] MEDS: MoRPHine SULFATE 4 MG/ML 1 ML CARP\\VIAL IV PRN (21:39)
[2023-12-30 06:27] LABS: Basophils # (auto) 0.05 K/uL (0.00-0.20); Basophils % (auto) 0.4 %; Eosinophils # (auto) 0.29 K/uL (0.00-0.50); Eosinophils % (auto) 2.4 %; Hematocrit (blood only) 26.2 % (37.0-47.0); Hemoglobin 8.6 g/dl (12.0-16.0); Immature Granulocytes # (auto) 0.23 K/uL (0.01-0.20); Immature Granulocytes % (auto) 1.9 %; Lymphocytes # (auto) 0.97 K/uL (1.20-3.40); Lymphocytes % (auto) 8.1 %; Mean Corpuscular Hemoglobin 28.2 pg (25.0-34.0); Mean Corpuscular Hgb Conc 32.8 g/dL (32.0-36.0); Mean Corpuscular Volume 85.9 fL (80.0-100.0); Mean Platelet Volume 10.3 fL (9.4-12.4); Monocytes # (auto) 0.83 K/uL (0.11-0.59); Neutrophils # (auto) 9.56 K/uL (1.40-6.50); Neutrophils % (auto) 80.2 %; Platelet Count 229 K/uL (130-400); RDW Coefficient of Variation 13.2 % (11.5-14.5); RDW Standard Deviation 41.1 fL (36.4-46.3); Red Blood Count 3.05 M/uL (4.20-5.40); White Blood Count 11.93 K/ul (4.8-10.8)
[2023-12-30 06:54] LABS: Alanine Aminotransferase 8 U/L (7-52); Albumin Globulin Ratio 1.1 (0.9-2); Albumin Level 2.8 gm/dl (3.4-5.0); Alkaline Phosphatase 161 U/L (34-104); Anion Gap 9 (3-11); Aspartate Aminotransferase 13 U/L (13-39); BUN Creatinine Ratio 10.3 (10-20); Bilirubin,Total 0.3 mg/dl (0.2-1.0); Blood Urea Nitrogen 4 mg/dl (6-23); Calcium 7.7 mg/dl (8.6-10.3); Carbon Dioxide 21 mmol/L (21-32); Chloride 107 mmol/L (98-107); Creatinine Clr Calc Pharmacy 212.7 ml/min; Est GFR (African American) > 150.0 ml/min; Est GFR (Non-African American) 133.2 ml/min; Globulin 2.6 gm/dl (2.5-4.0); Glucose 89 mg/dl (70-99(Fasting)); Potassium 3.2 mmol/L (3.5-5.1); Sodium 137 mmol/L (136-145); Total Protein 5.4 gm/dl (6.0-8.3)
[2023-12-30] MEDS ORDERED: cephALEXin 500 MG CAP PO SCH (09:10)
[2023-12-30] MEDS: NSS + 20MEQ KCL 20 MEQ/1,000 ML BAG IV SCH (10:01)
--- NOTE | 2023-12-30 10:22 | Obstetrical Progress Note ---
Date of Service December 30, 2023 Assessment & Plan Admission and Anticipated Discharge Date Admission Date: December 29, 2023 Subjective patient seen and examined. I reviewed her records. She is a patient of Dr. Carlton who is away. She was admitted by Dr. Conway on 12/27 for right lower quadrant abdominal pain and flank pain, fever, elevated white count and UA suggesting UTI. She was started on triple antibiotics and decreased to Rocephin only yesterday by Dr. Kothari. she states she feels better overall with no fever or chills anymore but she still has right-sided abdominal pain radiating to her right lower back. It is constant dull pain which gets sharp at times. Pain level is 4-5 out of 10 but it was 7 this morning for which she took 4 mg of IV morphine. It helped to bring it down to a 4 out of 10 but she still has the pain. She denies nausea vomiting, fever chills, problems with bowel movements, dysuria, problems with urination. She has been eating regular diet normally. 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 She denies regular contractions, leakage of fluid, vaginal bleeding. She reports good movements. her MRI was negative for appendicitis. Her white count has been coming down, was over 20,000 on admission and now is 11,000. Her blood cultures have been negative and urine culture is pending. Physical exam: she is alert, oriented x 3, seems comfortable and Laying down in bed,talking normally. she has SCDs on her legs, nontender, Homans' sign negative bilaterally, Abdomen, soft, gravid, fundus is nontender, left side is nontender, there is tenderness on deep palpation on the right side of the uterus, no rebound. Back, symmetric, no CVA tenderness bilaterally, there is muscular tenderness on the right middle and lower back. We discussed the differential diagnosis of UTI, kidney stones, muscular pain, or ligament pain, Recommended further workup with renal ultrasound with ureteral jets and a wait for urine culture and reevaluate. All questions were answered. Vital Signs Temp Pulse Resp BP BP Pulse Ox O2 Del Method 12/30/23 05:11 37.0 C 96 H 18 109/62 96 Room Air 12/30/23 00:05 36.8 C 84 18 92/54 L 96 Room Air 12/29/23 19:40 36.6 C 96 H 18 93/62 L 98 Room Air 12/29/23 12:30 36.7 C 90 16 97/66 L 96 Room Air Intake and Output 12/29/23 12/30/23 12/30/23 22:59 06:59 14:59 Intake Total 908.333 / 2947.315 2275 / 1000 Output Total 1250 / 3400 850 / 3400 Balance -1250 / -1491.667 58.333 / -4696.470 4108 / 1000 Intake: IV 908.333 / 1677.874 6406 / 1000 Lactated Ringer's 1,000 ml @ 908.333 / 0047.577 6245 / 1000 125 mls/hr IV .Q8H PRN Rx#: [id number] Output: Urine 1250 / 3400 850 / 3400 Lab Results 12/28/23 12/28/23 12/28/23 Range/Units 12:28 12:42 13:00 WBC 21.12 H (4.8-10.8) K/ul RBC 3.58 L (4.20-5.40) M/uL Hgb 10.3 L (12.0-16.0) g/dl Hct 30.6 L (37.0-47.0) % MCV 85.5 (80.0-100.0) fL MCH 28.8 (25.0-34.0) pg MCHC 33.7 (32.0-36.0) g/dL RDW Std Deviation 40.1 (36.4-46.3) fL RDW Coeff of Liz 12.9 (11.5-14.5) % Plt Count 253 (130-400) K/uL MPV 10.3 (9.4-12.4) fL Immature Gran % (Auto) 0.8 % Neut % (Auto) 88.7 % Lymph % (Auto) 2.9 % [place] % (Auto) 7.0 % Eos % (Auto) 0.2 % Baso % (Auto) 0.4 % Neut # (Auto) 18.73 H (1.40-6.50) K/uL Lymph # (Auto) 0.62 L (1.20-3.40) K/uL [place] # (Auto) 1.48 H (0.11-0.59) K/uL Eos # (Auto) 0.04 (0.00-0.50) K/uL Baso # (Auto) 0.08 (0.00-0.20) K/uL Immature Gran # (Auto) 0.17 (0.01-0.20) K/uL Sodium (136-145) mmol/L Potassium (3.5-5.1) mmol/L Chloride (98-107) mmol/L Carbon Dioxide (21-32) mmol/L Anion Gap (3-11) BUN (6-23) mg/dl Creatinine 0.48 L (0.6-1.2) mg/dl Est Cr Clr Drug Dosing 172.8 ml/min Est GFR ( Amer) 144.2 ml/min Est GFR (Non-Af Amer) 124.4 ml/min BUN/Creatinine Ratio (10-20) Glucose (70-99(Fasting)) mg/dl Calcium (8.6-10.3) mg/dl Total Bilirubin (0.2-1.0) mg/dl AST (13-39) U/L ALT (7-52) U/L Alkaline Phosphatase (34-104) U/L Total Protein (6.0-8.3) gm/dl Albumin (3.4-5.0) gm/dl Globulin (2.5-4.0) gm/dl Albumin/Globulin Ratio (0.9-2) Urine Color Dark Yellow Urine Appearance Clear (Clear) Urine pH 5.5 (4.5-7.5) Ur Specific [place] 1.040 H (1.000-1.030) Urine Protein 1+ H (Negative) Urine Glucose (UA) 2+ H (Negative) Urine Ketones 3+ H (Negative) Urine Blood Negative (Negative) Urine Nitrite Negative (Negative) Urine Bilirubin Negative (Negative) Urine Urobilinogen Negative (Negative) Ur Leukocyte Esterase Negative (Negative) Urine WBC (Auto) 6-10 H (0-5) /hpf Urine RBC (Auto) 0-2 (0-2) /hpf U Hyaline Cast (Auto) 0-2 (0-2) /lpf U Epithel Cells (Auto) 6-10 H (0-2) /hpf Urine Bacteria (Auto) 1+ H (None Seen) 12/28/23 12/29/23 12/30/23 Range/Units 20:23 05:33 05:43 WBC 20.90 H 11.93 H (4.8-10.8) K/ul RBC 3.11 L 3.05 L (4.20-5.40) M/uL Hgb 8.9 L 8.6 L (12.0-16.0) g/dl Hct 27.3 L 26.2 L (37.0-47.0) % MCV 87.8 85.9 (80.0-100.0) fL MCH 28.6 28.2 (25.0-34.0) pg MCHC 32.6 32.8 (32.0-36.0) g/dL RDW Std Deviation 41.7 41.1 (36.4-46.3) fL RDW Coeff of Liz 13.2 13.2 (11.5-14.5) % Plt Count 233 229 (130-400) K/uL MPV 10.3 10.3 (9.4-12.4) fL Immature Gran % (Auto) 1.0 1.9 % Neut % (Auto) 87.2 80.2 % Lymph % (Auto) 4.2 8.1 % [place] % (Auto) 6.9 7.0 % Eos % (Auto) 0.3 2.4 % Baso % (Auto) 0.4 0.4 % Neut # (Auto) 18.23 H 9.56 H (1.40-6.50) K/uL Lymph # (Auto) 0.88 L 0.97 L (1.20-3.40) K/uL [place] # (Auto) 1.44 H 0.83 H (0.11-0.59) K/uL Eos # (Auto) 0.07 0.29 (0.00-0.50) K/uL Baso # (Auto) 0.08 0.05 (0.00-0.20) K/uL Immature Gran # (Auto) 0.20 0.23 H (0.01-0.20) K/uL Sodium 133 L 136 137 (136-145) mmol/L Potassium 3.5 3.4 L 3.2 L (3.5-5.1) mmol/L Chloride 104 106 107 (98-107) mmol/L Carbon Dioxide 16 L 22 21 (21-32) mmol/L Anion Gap 13 H 8 9 (3-11) BUN 6 5 L 4 L (6-23) mg/dl Creatinine 0.44 L 0.46 L 0.39 L (0.6-1.2) mg/dl Est Cr Clr Drug Dosing 188.5 180.3 212.7 ml/min Est GFR ( Amer) 148.4 146.3 > 150.0 ml/min Est GFR (Non-Af Amer) 128.1 126.2 133.2 ml/min BUN/Creatinine Ratio 13.6 10.9 10.3 (10-20) Glucose 116 H 126 H 89 (70-99(Fasting)) mg/dl Calcium 8.3 L 8.0 L 7.7 L (8.6-10.3) mg/dl Total Bilirubin 0.6 0.3 0.3 (0.2-1.0) mg/dl AST 11 L 9 L 13 (13-39) U/L ALT 8 7 8 (7-52) U/L Alkaline Phosphatase 194 H 171 H 161 H (34-104) U/L Total Protein 6.2 5.7 L 5.4 L (6.0-8.3) gm/dl Albumin 3.2 L 3.0 L 2.8 L (3.4-5.0) gm/dl Globulin 3.0 2.7 2.6 (2.5-4.0) gm/dl Albumin/Globulin Ratio 1.1 1.1 1.1 (0.9-2) Urine Color Urine Appearance (Clear) Urine pH (4.5-7.5) Ur Specific [place] (1.000-1.030) Urine Protein (Negative) Urine Glucose (UA) (Negative) Urine Ketones (Negative) Urine Blood (Negative) Urine Nitrite (Negative) Urine Bilirubin (Negative) Urine Urobilinogen (Negative) Ur Leukocyte Esterase (Negative) Urine WBC (Auto) (0-5) /hpf Urine RBC (Auto) (0-2) /hpf U Hyaline Cast (Auto) (0-2) /lpf U Epithel Cells (Auto) (0-2) /hpf Urine Bacteria (Auto) (None Seen) Results & Data Vital Signs (Past 12 Hours) Vital Signs Temp Pulse Resp BP BP Pulse Ox O2 Del Method 05/08/24 05:11 37.0 C 96 H 18 109/62 96 Room Air 12/30/23 00:05 36.8 C 84 18 92/54 L 96 Room Air
--- NOTE | 2023-12-30 11:08 | Ultrasound Report ---
RENAL ULTRASOUND HISTORY: flank pain COMPARISON: Pelvis MRI 12/28/2023. FINDINGS: Right kidney: 12.3 cm. Mild hydronephrosis. Normal corticomedullary differentiation and cortical thic kness. Left kidney: 11.9 cm. Mild hydronephrosis. Normal corticomedullary differentiation and cortical thick ness. Bladder: No bladder wall thickening. The bilateral ureteral jets were identified. Small amount of maria luisa ris noted within the bladder. Miscellaneous: A fetus partially visualized and appears to demonstrate a cephalic presentation. IMPRESSION: 1. Mild bilateral hydronephrosis. This favors physiologic hydronephrosis of . 2. Small amount of debris noted within the otherwise normal bladder ACT 112: Negative or not required by law. Electronically signed by: Geronimo Newman M.D. 12/30/2023 11:07 AM
[2023-12-30] MEDS: IRON SUCROSE 200 MG in 0.9 % SODIUM CHLORIDE 100 ML IV ONE (11:30)
[2023-12-30] MEDS: ACETAMINOPHEN 1,000 MG/100 ML VIAL IV PRN (12:30)
[2023-12-30] MEDS: CYCLOBENZAPRINE HCL 5 MG TAB PO SCH (12:38)
--- NOTE | 2023-12-30 15:16 | Obstetrical Progress Note ---
Date of Service December 30, 2023 Assessment & Plan Admission and Anticipated Discharge Date Admission Date: December 29, 2023 Subjective Patient is reevaluated. She was wondering about ultrasound results and cult ures. I informed her that renal ultrasound is negative, normal distal bilateral ureteral jets feeling into the bladder. Urine culture is negative, only lactobacillus were seen. Blood cultures were negative. She still has right-sided abdominal pain but it is milder than before. Now she tells me that she has headache since Thursday evening which is December 25. It is on her restorationist and top of the head, getting up and bending forward or straining in the bathroom makes it worse. No change in her vision, no numbness or tingling nor weakness. She does not have history of migraines. She has had sinus infection in the past but does not feel like it. She denies stuffy nose, drainage behind nose/throat, sore throat, cough, chest pain or shortness of breath. I recommended her to be evaluated by neurologist due to persistent headache for the last 4 days. Patient states she does not want to see any more providers and get more testing done she thinks she is tired she has not slept well since she came in. She wants to have no disturb sign on the door and sleep for the next few hours and then see how she will feel and then decide to see neurologist or not. All questions were answered. Plan to continue with IV fluids with potassium, DC IV antibiotics, reevaluate Results & Data Vital Signs (Past 12 Hours) Vital Signs Temp Pulse Resp BP Pulse Ox O2 Del Method 12/30/23 05:11 37.0 C 96 H 18 109/62 96 Room Air
--- NOTE | 2023-12-30 17:34 | Obstetrical Progress Note ---
Date of Service December 30, 2023 Assessment & Plan Admission and Anticipated Discharge Date Admission Date: December 29, 2023 Subjective Patient is reevaluated. She slept for few hours and then woke up. She feels better and she wants to go home. She is has mild back and right lower quadrant pain and mild headache. She is still politely declines neurology consultation and she thinks she is going to feel better when she goes home and rest at home. Vital signs stable afebrile, heart rate reassuring, No signs or symptoms of labor, Plan to discharge home with prescriptions and follow-up in office with Dr. Carlton recommended to call back with increased pain, headaches, change in her vision. She lives very close to the hospital she is willing to come back to the ER. Results & Data Vital Signs (Past 12 Hours) Vital Signs Temp Pulse Resp BP Pulse Ox O2 Del Method 12/30/23 15:15 37 C 81 18 95/59 L 95 Room Air 12/30/23 12:00 37 C 86 18 98/62 L 95 Room Air 12/30/23 07:40 37.2 C 89 20 95/55 L 95 Room Air
== END 2023-12-30 18:15 | disposition home or self-care (01) | DRG 831 ==
LOC: OPB 11:41 → 4S1 11:44 → 4E1 12-29 12:02

== ENCOUNTER 2024-02-10 07:42 | Inpatient (IN) ==
[2024-02-10] MEDS ORDERED: LIDOCAINE 1% LOCAL 20 ML VIAL INFIL PRN (08:38)
[2024-02-10] MEDS: PENICILLIN GK 6 MU in DEXTROSE 5% 250 ML IV STA (09:12)
[2024-02-10] MEDS: LACTATED RINGER'S 1,000 ML IV PRN (09:12)
[2024-02-10] MEDS: miSOPROStoL 50 MCG TAB PO ONE (09:45)
[2024-02-10 09:48] LABS: Hematocrit (blood only) 30.3 % (37.0-47.0); Hemoglobin 9.7 g/dl (12.0-16.0); Mean Corpuscular Hemoglobin 25.7 pg (25.0-34.0); Mean Corpuscular Volume 80.4 fL (80.0-100.0); Mean Platelet Volume 10.9 fL (9.4-12.4); Platelet Count 230 K/uL (130-400); RDW Coefficient of Variation 14.9 % (11.5-14.5); RDW Standard Deviation 43.3 fL (36.4-46.3); Red Blood Count 3.77 M/uL (4.20-5.40); White Blood Count 8.58 K/ul (4.8-10.8)
--- OUTSIDE RECORDS SUMMARY | 2024-02-10 10:53 | External Medical Summary | Summary of Care ---
Author Name Unknown Organization [facility] Address [address] [place] [address] Phone [phone] Care Team Providers Care Chief Nurse Executive Name Role Phone FrankElsa glodman SANA Primary Care Provider [phone] Encounter Details Date Type Department Care Team (Late st Contact Info) Description 02/01/2024 Telephone Gynecology/Obstetrics [facility] [address] [place] [id number] Mario Carlton MD [address] [place] [phone] Allergies Active Allergy Reactions Criticality Noted Date Comments Moxifloxacin Hcl In Nacl 12/10/2011 GI problems Kiwi Extract 03/06/2020 Fruit causes symptoms- itching Montelukast Psych complications 03/06/2020 strange dreams and increased anxiety documented as of this encounter (statuses as of 02/01/2024) Medications Medication Sig Dispensed Refills Start Date End Date Status MUCINEX D 60-600 MG PO [id number]:Acute sinusitis 1 or 2 pills by mouth [...] days as Asthma Rescue kit 10 Tab 03/14/2019 Active Respiratory Therapy Supplies (NEBULIZER) DEVIIndications:Moder ate persistent asthma with acute exacerbation as directed, dx code J45.41 1 Each 11/17/2019 Active Mometasone Furo-Formoterol Fum (DULERA) 100-5 MCG/ACT Inhaler Inhale 2 Puffs by mouth 2 times a day. 13 g 11 03/06/2020 Active 28-0.8 MG Oral Tablet Take by mouth. Active documented as of this encounter (statuses as of 02/01/2024) Active Problems Problem Noted Date Diagnosed Date Moderate persistent asthma without complication 03/01/2012 Cellulitis of face 10/23/2002 TOOTH ERUPTION DISTURB 10/23/2002 Varicella without complication BENIGN NEOPLASM SKIN NOS Estimated Date of Delivery Comme nts Yes 02/11/2024 Based on last me nstrual period of 05/07/2023 documented as of this encounter (statuses as of 02/01/2024) Resolved Problems Problem Noted Date Diagnosed Date Resolved Date Asthma with severity to be determined 12/05/2011 03/01/2012 Overview: ICD-10 update of inactive term documented as of this encounter (statuses as of 02/01/2024) Immunizations Name Administration Dates Next Due Seasonal Influenza, Split, IIV3, With Preserve, Inj 05/09/2016 documented as of this encounter Social History Tobacco Use Types Packs/Day Years Used Date Smoking Tobacco: Former Cigarettes 0.7 0.5 0 02/09/2005 - 08/10/2005 Smokeless Tobacco: Never Alcohol Use Standard Drinks/Week Comments No 0 (1 standard drink = 0.6 oz pur e alcohol) occ Hunger Vital Sign Answer Date Recorded Within the past 12 months, y ou worried that your food would run out before you got the money to buy more. Never true 01/19/20 24 Within the past 12 months, t he food you bought just didn't last and you didn't have money to get more. Never true 01/19/2024 Estimated Date of Delivery Comme nts Yes 02/11/2024 Based on last me nstrual period of 05/07/2023 Sex and Gender Information Value Date Recorded Sex Assigned at Female 01/19/2024 5:44 PM EDT Gender Identity Female 01/19/2024 5:44 PM EDT Sexual Orientation Straight 01/19/2024 5: 44 PM EDT Job Start Date Occupation Industry Not on file Not on file Not on file documented as of this encounter Miscellaneous Notes * Telephone Encounter - Christiana Garcia LPN - 02/01/2024 12:18 PM EDT Received GBS results. Positive. Per Dr. Carlton Results placed in scanning documented in this encounter Plan of Treatment Upcoming Encounters Date Type Department Care Team (Late st Contact Info) Description 02/05/2024 11:15 AM EDT Office Visit Gynecology/Obstetrics [facility] [address] [place] [address] BackerLeatha CRNP [address] [place] [address] Health Maintenance Due Date Last Done Comments Depression Screening 1997 DTaP,Tdap,and Td Vaccines (6 - Tdap) 04/07/1997 04/06/1997, 06/10/1989, 05/10/1986, Additional history exists Hepatitis C Screening 2003 Pap Smear 09/20/2012 09/20/2009 Cervical Cancer Screening 2015 HPV/Co-Test 2015 Pneumococcal Vaccine: Pediatrics (0 to 5 Years) and At-Risk Patients (6 to 64 Years) (2 of 2 - PCV) 04/17/2015 04/17/2014 Diabetes Screening 04/30/2019 04/30/2016, 1 09/11/2013, 02/12/2010 COVID-19 Vaccine (1 - 2022- season) 2023 Influenza Vaccine (FLU shot) (Season Ended) 2024 05/09/2016, 06/14/2013, 06/24/2012 Hepatitis B Completed 08/29/1997, 03/24, 03/15/1996 GARDASIL-HPV IMMUNIZATION SERIES Aged Out No longer eligible based on patient's age to complete this topic MENINGOCOCCAL (MENACTRA/MENVEO) Aged Out No longer eligible based on patient's age to complete this topic documented as of this encounter Medical Devices Not on filedocumented as of this encounter Care Teams Chief Nurse Executive Relationship Specialty Start Date End Date Elsa White CRNP [address] [place] [place] [address] PCP - General Nurse Practitioner 03/28/13 documented as of this encounter
--- OUTSIDE RECORDS SUMMARY | 2024-02-10 10:53 | External Medical Summary | Summary of Care ---
Author Name Unknown Organization [facility] Address [address] [place] [address] Phone [phone] Care Team Providers Care Breakfast Supervisor Name Role Phone FrankElsa goldman SANA Primary Care Provider Encounter Details Date Type Department Care Team (Late st Contact Info) Description 01/19/2024 Telephone Gynecology/Obstetrics [facility] [address] [place] [address] Mario Carlton MD [address] [place] [phone] Allergies Active Allergy Reactions Criticality Noted Date Comments Moxifloxacin Hcl In Nacl 12/10/2011 GI problems Kiwi Extract 03/06/2020 Fruit causes symptoms- itching Montelukast Psych complications 03/06/2020 strange dreams and increased anxiety documented as of this encounter (statuses as of 01/22/2024) Medications Medication Sig Dispensed Refills Start Date End Date Status MUCINEX D 60-600 MG PO [id number]:Acute sinusitis 1 or 2 pills by mouth [...] as of this encounter (statuses as of 01/22/2024) Active Problems Problem Noted Date Diagnosed Date Moderate persistent asthma without complication 03/01/2012 Cellulitis of face 10/23/2002 TOOTH ERUPTION DISTURB 10/23/2002 Varicella without complication BENIGN NEOPLASM SKIN NOS documented as of this encounter (statuses as of 01/22/2024) Resolved Problems Problem Noted Date Diagnosed Date Resolved Date Asthma with severity to be determined 12/05/2011 03/01/2012 Overview: ICD-10 update of inactive term documented as of this encounter (statuses as of 01/22/2024) Immunizations Name Administration Dates Next Due Seasonal [...] money to get more. Never true 01/19/2024 Sex and Gender Information Value Date Recorded Sex Assigned at Female 01/19/2024 5:44 PM EDT Gender Identity Female 01/19/2024 5:44 PM EDT Sexual Orientation Straight 01/19/2024 5: 44 PM EDT Job Start Date Occupation Industry Not on file Not on file Not on file documented as of this encounter Miscellaneous Notes * Telephone Encounter - Christiana Garcia LPN - 01/19/2024 10:20 AM EDT Patient called to schedule Nob visit, Brandt patient. States she is 36 weeks today and needs 1 week follow up. documented in this encounter Plan of Treatment Upcoming Encounters Date Type Department Care Team (Late st Contact Info) Description 01/26/2024 9:30 AM EDT Office Visit Gynecology/Obstetrics [facility] [address] [place] [address] BackerLeatha CRNP [address] [place] [phone] Health Maintenance Due Date Last Done Comments Depression Screening 1997 DTaP,Tdap,and Td Vaccines (6 - Tdap) 04/07/1997 04/06/1997, 06/10/1989, 05/10/1986, Additional history exists Hepatitis C Screening 2003 Pap Smear 09/20/2012 09/20/2009 Cervical Cancer Screening 2015 HPV/Co-Test 2015 Pneumococcal Vaccine: Pediatrics (0 to 5 Years) and At-Risk Patients (6 to 64 Years) (2 of 2 - PCV) 04/17/2015 04/17/2014 COVID-19 Vaccine ( - 2022-24 season) 2023 Influenza Vaccine (FLU shot) (Season [...] filedocumented as of this encounter Care Teams Breakfast Supervisor Relationship Specialty Start Date End Date Elsa White CRNP [address] [place] [address] PCP - General Nurse Practitioner 03/28/13 documented as of this encounter
--- OUTSIDE RECORDS SUMMARY | 2024-02-10 10:53 | External Medical Summary | Summary of Care ---
Author Name Unknown Organization [facility] Address [address] [place] [address] Phone [phone] Care Team Providers Care Bridal Sales Consultant Name Role Phone Elsa White Primary Care Provider Encounter Details Date Type Department Care Team (Late st Contact Info) Description 01/19/2024 Result Scan Unspecified Department <No scans attached> Allergies Active Allergy Reactions Criticality Noted Date Comments Moxifloxacin Hcl In Nacl 12/10/2011 GI problems Kiwi Extract 03/06/2020 Fruit causes symptoms- itching Montelukast Psych complications 03/06/2020 strange dreams and increased anxiety documented as of this encounter (statuses as of 02/05/2024) Medications Medication Sig Dispensed Refills Start Date End Date Status MUCINEX D 60-600 MG PO [id number]:Acute sinusitis 1 or 2 pills by mouth [...] as of this encounter (statuses as of 02/05/2024) Active Problems Problem Noted Date Diagnosed Date Normal 02/04/2024 Overview: Transfer from Dr Brandt STEINER (group B Streptococcus c arrier), +RV culture, currently 02/04/2024 AMA (advanced maternal age) multigravida 35+ Moderate persistent asthma without complication 03/01/2012 Cellulitis of face 10/23/2002 TOOTH ERUPTION DISTURB 10/23/2002 Varicella without complication BENIGN NEOPLASM SKIN NOS documented as of this encounter (statuses as of 02/05/2024) Resolved Problems Problem Noted Date Diagnosed Date Resolved Date Asthma with severity to be determined 12/05/2011 03/01/2012 Overview: ICD-10 update of inactive term documented as of this encounter (statuses as of 02/05/2024) Immunizations Name Administration Dates Next Due Seasonal [...] on file documented as of this encounter Plan of Treatment Upcoming Encounters Date Type Department Care Team (Late st Contact Info) Description 02/05/2024 8:30 AM EDT Office Visit Gynecology/Obstetrics [facility] [address] [place] [address] BackerLeatha CRNP [address] [place] [address] Health Maintenance Due Date Last Done Comments [...] 04/30/2019 04/30/2016, 1 09/11/2013, 02/12/2010 COVID-19 Vaccine (2022- season) 2023 Influenza Vaccine (FLU shot) (Season Ended) 2024 05/09/2016, 06/14/2013, 06/24/2012 Hepatitis B Completed 08/29/1997, 03/24, 03/15/1996 GARDASIL-HPV IMMUNIZATION SERIES Aged Out No longer eligible based on patient's age to complete this topic MENINGOCOCCAL (MENACTRA/MENVEO) Aged Out No longer eligible based on patient's age to complete this topic documented as of this encounter Medical Devices Not on filedocumented as of this encounter Procedures Procedure Name Priority Date/Time Associated Diagnosis Comments OUTSIDE LAB RESULTS 01/19/2024 documented in this encounter Results * OUTSIDE LAB RESULTS (01/19/2024) 01/19/2024 No Physician Data Unknown LABORATORY documented in this encounter Care Teams Bridal Sales Consultant Relationship Specialty Start Date End Date Elsa White CRNP [address] [place] [address] PCP - General Nurse Practitioner 03/28/13 documented as of this encounter
--- OUTSIDE RECORDS SUMMARY | 2024-02-10 10:53 | External Medical Summary | Summary of Care ---
Author Name Unknown Organization [facility] Address [address] [place] [address] Phone [phone] Care Team Providers Care Web Database Developer Name Role Phone Elsa White Primary Care Provider Reason for Visit * Reason Comments New Visit Encounter Details Date Type Department Care Team (Late st Contact Info) Description 01/28/2024 3:45 PM EDT Office Visit Gynecology/Obstetric s [facility] Poll[facility] [address] [place] [address] Gianni Conway MD [address] [place] [address] 38 weeks gestation of * Allergies Active Allergy Reactions Criticality Noted Date Comments Moxifloxacin Hcl In Nacl 12/10/2011 GI problems Kiwi Extract 03/06/2020 Fruit causes symptoms- itching Montelukast Psych complications 03/06/2020 strange dreams and increased anxiety documented as of this encounter (statuses as of 01/28/2024) Medications Medication Sig Dispensed Refills Start Date End Date Status MUCINEX D 60-600 MG PO [id number]:Acute sinusitis 1 or 2 pills by mouth [...] as of this encounter (statuses as of 01/28/2024) Active Problems Problem Noted Date Diagnosed Date Moderate persistent asthma without complication 03/01/2012 Cellulitis of face 10/23/2002 TOOTH ERUPTION DISTURB 10/23/2002 Varicella without complication BENIGN NEOPLASM SKIN NOS Estimated Date of Delivery Comme nts Yes 02/11/2024 Based on last me nstrual period of 05/07/2023 documented as of this encounter (statuses as of 01/28/2024) Resolved Problems Problem Noted Date Diagnosed Date Resolved Date Asthma with severity to be determined 12/05/2011 03/01/2012 Overview: ICD-10 update of inactive term documented as of this encounter (statuses as of 01/28/2024) Immunizations Name Administration Dates Next Due Seasonal [...] on file documented as of this encounter Last Filed Vital Signs Vital Sign Reading Time Taken Comments Blood Pressure 102/60 01/28/2024 3:56 PM EDT Pulse - - Temperature - - Respiratory Rate - - Oxygen Saturation - - Inhaled Oxygen Concentration - - Weight 80.3 kg (177 lb) 01/28/2024 3:56 PM EDT Height 167.6 cm (5' 6") 01/28/2024 3:56 PM EDT Body Mass Index 28.57 01/28/2024 3:56 PM EDT documented in this encounter Progress Notes * Gianni Conway MD - 01/28/2024 4:10 PM EDT Pt is a transfer from Dr Carlton S/p Agnieszka on med VE 3-4/post Irregular ctx Discussed labor * Sandi Diez LPN - 01/28/2024 3:46 PM EDT 38w0d Pt currently taking ABX for UTI Had GBS with Brandt documented in this encounter Plan of Treatment [...] 04/30/2019 04/30/2016, 1 09/11/2013, 02/12/2010 COVID-19 Vaccine ( season) 2023 Influenza Vaccine (FLU shot) (Season Ended) 2024 05/09/2016, 06/14/2013, 06/24/2012 Hepatitis B Completed 08/29/1997, 03/24, 03/15/1996 GARDASIL-HPV IMMUNIZATION SERIES Aged Out No longer eligible based on patient's age to complete this topic MENINGOCOCCAL (MENACTRA/MENVEO) Aged Out No longer eligible based on patient's age to complete this topic documented as of this encounter Medical Devices Not on filedocumented as of this encounter Visit Diagnoses Diagnosis 38 weeks gestation of - Primary state, incidental documented in this encounter Care Teams Web Database Developer Relationship Specialty Start Date End Date Elsa White CRNP [address] [place] [address] PCP - General Nurse Practitioner 03/28/13 documented as of this encounter
--- OUTSIDE RECORDS SUMMARY | 2024-02-10 10:53 | External Medical Summary | Summary of Care ---
Author Name Unknown Organization [facility] Address [address] [place] [address] Phone [phone] Care Team Providers Care Ore Smelter Name Role Phone FrankElsa goldman SANA Primary Care Provider [phone] Encounter Details Date Type Department Care Team (Late st Contact Info) Description 01/19/2024 Telephone Gynecology/Obstetrics [facility] [address] [place] [address] Mario Carlton MD [address] [place] [phone] Allergies Active Allergy Reactions Criticality Noted Date Comments Moxifloxacin Hcl In Nacl 12/10/2011 GI problems Kiwi Extract 03/06/2020 Fruit causes symptoms- itching Montelukast Psych complications 03/06/2020 strange dreams and increased anxiety documented as of this encounter (statuses as of 01/26/2024) Medications Medication Sig Dispensed Refills Start Date End Date Status MUCINEX D 60-600 MG PO [id number]:Acute sinusitis 1 or 2 pills by mouth [...] as of this encounter (statuses as of 01/26/2024) Active Problems Problem Noted Date Diagnosed Date Moderate persistent asthma without complication 03/01/2012 Cellulitis of face 10/23/2002 TOOTH ERUPTION DISTURB 10/23/2002 Varicella without complication BENIGN NEOPLASM SKIN NOS documented as of this encounter (statuses as of 01/26/2024) Resolved Problems Problem Noted Date Diagnosed Date Resolved Date Asthma with severity to be determined 12/05/2011 03/01/2012 Overview: ICD-10 update of inactive term documented as of this encounter (statuses as of 01/26/2024) Immunizations Name Administration Dates Next Due Seasonal [...] 2 - PCV) 04/17/2015 04/17/2014 COVID-19 Vaccine (1 - 2022-24 season) 2023 Influenza Vaccine (FLU [...] filedocumented as of this encounter Care Teams Ore Smelter Relationship Specialty Start Date End Date Elsa White CRNP [address] [place] [address] PCP - General Nurse Practitioner 03/28/13 documented as of this encounter
--- OUTSIDE RECORDS SUMMARY | 2024-02-10 10:53 | External Medical Summary | Summary of Care ---
Author Name Unknown Organization [facility] Address [address] [place] [address] Phone [phone] Care Team Providers Care Equipment Specialist Name Role Phone Elsa White SANA Primary Care Provider [phone] Reason for Visit * Reason Comments New Visit Encounter Details Date Type Department Care Team (Late st Contact Info) Description 01/26/2024 10:00 AM EDT Nurse Only Gynecology/Obstetrics [facility] [address] [facility] [place] [address] Gw, Nurse Press Cutter New [address] [facility] [place] [address] New Visit Allergies Active Allergy Reactions Criticality Noted Date Comments Moxifloxacin Hcl In Nacl 12/10/2011 GI problems Kiwi Extract 03/06/2020 Fruit causes symptoms- itching Montelukast Psych complications 03/06/2020 strange dreams and increased anxiety documented as of this encounter (statuses as of 01/26/2024) Medications Medication Sig Dispensed Refills Start Date End Date Status MUCINEX D 60-600 MG PO [id number]:Acute sinusitis 1 or 2 pills by mouth [...] Varicella without complication BENIGN NEOPLASM SKIN NOS Comments Yes documented as of this encounter (statuses as [...] money to get more. Never true 01/19/2024 Comments Yes Sex and Gender Information Value Date Recorded Sex Assigned at Female 01/19/2024 5:44 PM EDT Gender Identity Female 01/19/2024 5:44 PM EDT Sexual Orientation Straight 01/19/2024 5: 44 PM EDT Job Start Date Occupation Industry Not on file Not on file Not on file documented as of this encounter Last Filed Vital Signs Vital Sign Reading Time Taken Comments Blood Pressure - - Pulse - - Temperature - - Respiratory Rate - - Oxygen Saturation - - Inhaled Oxygen Concentration - - Weight 79 kg (174 lb 3.2 oz) 01/26/2024 10:15 AM EDT Height 167.6 cm (5' 6") 01/26/2024 10:15 AM EDT Body Mass Index 28.12 01/26/2024 10:15 AM EDT documented in this encounter Nursing Notes * Poppy Buenrostro RN - 01/26/2024 10:[address] Carlton Patient presented to office today for in person NOB without completing phone intake. Patient canceled Phone intake not realizing this. Patient reports that she has been having contractions since last week, she was last seen on Thursday01/19/[address] Carlton and was told she was 5cm dilated. Patient states contractions are not regular or constant. They occur for about an hour then stop for a couple hours. They are not timeable. Reports that within the past 24 hours, they seem to be more intense but still are not timeable/regular. She is not having any fluid leaking/vaginal bleeding. She reports + FM. Reviewed patient with Dr. Kothari , tv production assistant provider to see if patient should have shari howe at [facility] since we do not have her history (do not have chart from Dr. Carlton office yet) and per Dr. Kothari patient unlikely to be in active labor, she should be given labor precautions and rescheduled for first available. I completed nurse intake for patient while she was in the office today. Patient is rescheduled to see Dr. Conway on 01/27 at 3:45, patient made aware of this and to arrive at 3:30. I gave patient Labor instructions, advised her to begin counting contractions and advised her to count FM and to call the nurse triage line with any progressing signs of labor. Patient was also given our labor instructions sheet. She does live approximately 15 mins from hospital and reportsher labor is typically "pretty quick" but denies any precipitous labor. Patient is agreeable to plan and verbalized understanding to all. Patient here for NOB intake. 37w5d RHIANNON 02/11/2024 No bleeding or leaking Irregular contractions x 1 week. + FM Taking Hx of asthma and recent hospitalization for pyelonephritis ([facility]) Triage number given NOB appt instructions given documented in this encounter Plan of Treatment Upcoming Encounters Date Type Department Care Team (Late st Contact Info) Description 01/28/2024 3:45 PM EDT Office Visit Gynecology/Obstetrics [facility] [address] [address] Gianni Conway MD [address] [place] [id number] Health Maintenance Due Date Last Done Comments [...] filedocumented as of this encounter Care Teams Equipment Specialist Relationship Specialty Start Date End Date Elsa White CRNP [address] [place] [address] PCP - General Nurse Practitioner 03/28/13 documented as of this encounter
--- OUTSIDE RECORDS SUMMARY | 2024-02-10 10:53 | External Medical Summary | Summary of Care ---
Author Name Unknown Organization [facility] Address [address] [place] [address] Phone [phone] Care Team Providers Care Camp Coordinator Name Role Phone FrankElsa goldman Helen HOOD Primary Care Provider [phone] Reason for Visit * Reason Onset Date Comments Left Without Being Seen 01/26/2024 Encounter Details Date Type Department Care Team (Late st Contact Info) Description 01/26/2024 9:30 AM EDT Office Visit Gynecology/Obstetric s Jesusita Pollard [address] [place] [address] BackerLeatha CRNP [address] [place] [address] Left without being seen* Allergies Active Allergy Reactions Criticality Noted Date Comments Moxifloxacin Hcl In Nacl 12/10/2011 GI problems Kiwi Extract 03/06/2020 Fruit causes symptoms- itching Montelukast Psych complications 03/06/2020 strange dreams and increased anxiety documented as of this encounter (statuses as of 01/26/2024) Medications Medication Sig Dispensed Refills Start Date End Date Status MUCINEX D 60-600 MG PO [id number]:Acute sinusitis 1 or 2 pills by mouth [...] on file documented as of this encounter Progress Notes * Ashley Garsia LPN - 01/26/2024 10:17 AM EDT Patient left without being seen by the provider. documented in this encounter Nursing Notes * Ashley Garsia LPN - 01/26/2024 10:17 AM EDT No episode, NOB intake had been cancelled. Patient completing intake today and being rescheduled for visit. documented in this encounter Plan of Treatment Upcoming Encounters Date Type Department Care Team (Late st Contact Info) Description 01/28/2024 3:45 PM EDT Office Visit Gynecology/Obstetrics [facility] [address] [place] [address] Gianni Conway MD [address] [place] [address] Health Maintenance Due Date Last Done Comments Depression Screening 1997 DTaP,Tdap,and Td Vaccines (6 - Tdap) 04/07/1997 04/06/1997, 06/10/1989, 05/10/1986, Additional history exists Hepatitis C Screening 2003 Pap Smear 09/20/2012 09/20/2009 Cervical Cancer Screening 2015 HPV/Co-Test 2015 Pneumococcal Vaccine: Pediatrics (0 to 5 Years) and At-Risk Patients (6 to 64 Years) (2 of 2 - PCV) 04/17/2015 04/17/2014 COVID-19 Vaccine ( - 2022- season) 2023 Influenza Vaccine (FLU [...] as of this encounter Visit Diagnoses Diagnosis Left without being seen- Primary documented in this encounter Care Teams Camp Coordinator Relationship Specialty Start Date End Date Elas White CRNP [address] [place] [address] PCP - General Nurse Practitioner 03/28/13 documented as of this encounter
--- OUTSIDE RECORDS SUMMARY | 2024-02-10 10:53 | External Medical Summary | Summary of Care ---
Author Name Unknown Organization [facility] Address [address] [place] [address] Phone [phone] Care Team Providers Care Secondary Spanish Teacher Name Role Phone FrankElsa goldman Helen HOOD Primary Care Provider Reason for Visit * Reason Comments Return Visit Encounter Details Date Type Department Care Team (Late st Contact Info) Description 02/05/2024 8:30 AM EDT Office Visit Gynecology/Obstetri [facility] [address] [place] [address] BackLeatha capps CRNP [address] [facility] [place] [address] Normal in third trimester*; GBS (group B Streptococcus carrier), +RV culture, currently ; Multigravida of advanced maternal age in third trimester Allergies Active Allergy Reactions Criticality Noted Date Comments Moxifloxacin Hcl In Nacl 12/10/2011 GI problems Kiwi Extract 03/06/2020 Fruit causes symptoms- itching Montelukast Psych complications 03/06/2020 strange dreams and increased anxiety documented as of this encounter (statuses as of 02/05/2024) Medications Medication Sig Dispensed Refills Start Date End Date Status MUCINEX D 60-600 MG PO [id number]:Acute sinusitis 1 or 2 pills by mouth [...] Dr Brandt STEINER (group B Streptococcus c debra), +RV culture, currently 02/04/2024 AMA (advanced maternal [...] Sign Reading Time Taken Comments Blood Pressure 104/62 02/05/2024 8:33 AM EDT Pulse - - Temperature - - Respiratory Rate - - Oxygen Saturation - - Inhaled Oxygen Concentration - - Weight 81.6 kg (180 lb) 02/05/2024 8:33 AM EDT Height - - Body Mass Index 29.05 01/28/2024 3:56 PM EDT documented in this encounter Progress Notes * Leatha Alcantara CRNP - 02/05/2024 8:36 AM EDT 39w1d Baby moving, slowing down - discussed calling if fewer than10 movements/2 hrs. Ctx increased over last 24 hrs, about every hr, but not enough to go to L&D. No LOF or bleeding. Wondering if having sleep apnea; recommend elevating HOB, nose strip, f/u with PCP. Induction scheduled next Thu. Return prn SANA Chávez * Teresita Nelson MED ASSIST - 02/05/2024 8:33 AM EDT 39w1d Denies vaginal bleeding/rom + movement + contractions, 24 hours ?sleep apnea x4 nights documented in this encounter Plan of Treatment [...] 1 09/11/2013, 02/12/2010 COVID-19 Vaccine (1 - season) 2023 Influenza Vaccine (FLU shot) (Season [...] as of this encounter Visit Diagnoses Diagnosis Normal in third trimester- Primary GBS (group B Streptococcus carrier), +RV culture, currently Supervision of other high-risk Multigravida of advanced maternal age in third trimester documented in this encounter Care Teams Secondary Spanish Teacher Relationship Specialty Start Date End Date Elsa White CRNP [address] [place] [address] PCP - General Nurse Practitioner 03/28/13 documented as of this encounter
--- OUTSIDE RECORDS SUMMARY | 2024-02-10 10:53 | External Medical Summary | Summary of Care ---
Author Name Unknown Organization [facility] Address [address] [place] [address] Phone [phone] Care Team Providers Care Melt Supervisor Name Role Phone FrankElsa goldman SANA Primary Care Provider [phone] Encounter Details Date Type Department Care Team (Late st Contact Info) Description 01/19/2024 Telephone Gynecology/Obstetrics [facility] [address] [place] [address] Mario Carlton MD [address] [place] [phone] Allergies Active Allergy Reactions Criticality Noted Date Comments Moxifloxacin Hcl In Nacl 12/10/2011 GI problems Kiwi Extract 03/06/2020 Fruit causes symptoms- itching Montelukast Psych complications 03/06/2020 strange dreams and increased anxiety documented as of this encounter (statuses as of 01/26/2024) Medications Medication Sig Dispensed Refills Start Date End Date Status MUCINEX D 60-600 MG PO [id number]:Acute sinusitis 1 or 2 pills by mouth [...] 01/28/2024 3:45 PM EDT Office Visit [facility] [address] [place] [address] Gianni Conway MD [address] [place] [place] [address] Health Maintenance Due Date Last Done Comments [...] filedocumented as of this encounter Care Teams Melt Supervisor Relationship Specialty Start Date End Date Elsa White CRNP [address] [place] [address] PCP - General Nurse Practitioner 03/28/13 documented as of this encounter
--- OUTSIDE RECORDS SUMMARY | 2024-02-10 10:53 | External Medical Summary | Summary of Care ---
Author Name Unknown Organization [facility] Address [address] [place] [address] Phone [phone] Care Team Providers Care Prepleater Name Role Phone FrankElsa goldman Helen HOOD Primary Care Provider Reason for Visit * Reason Onset Date Comments Appointment 01/26/2024 Encounter Details Date Type Department Care Team (Late st Contact Info) Description 01/26/2024 Telephone Gynecology/Obstetrics [facility] [address] [place] [address] BackerLeatha CRNP [address] [place] [address] Appointment Allergies Active Allergy Reactions Criticality Noted Date Comments Moxifloxacin Hcl In Nacl 12/10/2011 GI problems Kiwi Extract 03/06/2020 Fruit causes symptoms- itching Montelukast Psych complications 03/06/2020 strange dreams and increased anxiety documented as of this encounter (statuses as of 01/26/2024) Medications Medication Sig Dispensed Refills Start Date End Date Status MUCINEX D 60-600 MG PO [id number]:Acute sinusitis 1 or 2 pills by mouth [...] encounter Miscellaneous Notes * Telephone Encounter - Poppy Buenrostro RN - 01/26/2024 10:51 AM EDT Patient NOB intake completed and NOB visit r/s for 01/27. See nurse intake from today * Telephone Encounter - Ashley Garsia LPN - 01/26/2024 9:22 AM EDT Patient cancelled NOB intake 01/19 and has not been completed. Needs to reschedule intake and then provider visit after. documented in this encounter Plan of Treatment Upcoming Encounters Date Type Department Care Team (Late st Contact Info) Description 01/28/2024 3:45 PM EDT Office Visit Gynecology/Obstetrics Jesusita Pollard [address] [place] [address] Gianni Conway MD [address] [place] [address] Health Maintenance Due Date Last Done Comments [...] 04/30/2016, 1 09/11/2013, 02/12/2010 COVID-19 Vaccine ( - 2022- season) 2023 [...] filedocumented as of this encounter Care Teams Prepleater Relationship Specialty Start Date End Date Elsa White CRNP [address] [facility] [place] [address] PCP - General Nurse Practitioner 03/28/13 documented as of this encounter
[2024-02-10] MEDS: PENICILLIN GK 3 MU in DEXTROSE 5% 100 ML IV PRN (12:53)
[2024-02-10] MEDS: OXYTOCIN 30 UNITS/NSS 30 UNITS/500 ML BAG IV PRN ×2 (13:39→21:08)
[2024-02-10] MEDS: LIDOCAINE 2%/EPINEPHRINE 1:200,000 20 ML PF ONE (15:46)
[2024-02-10] MEDS: SODIUM CHLORIDE 0.9% PF INJ 10 ML VIAL ONE (15:47)
[2024-02-10] MEDS: fentaNYL citrate PF 100 MCG/2 ML VIAL ONE (15:47)
[2024-02-10] MEDS: fentANYL 2 MCG/ML BUPIVacaine 0.125%-NSS 100ML BAG ONE (15:47)
[2024-02-10] MEDS: BUPIVACAINE 0.25% PF 30 ML VIAL ONE (15:47)
--- NOTE | 2024-02-10 16:00 | Anesthesiology Consultation ---
Date of Service February 10, 2024 Assessment & Plan Chart Review Chart Review: Acceptable Risk for Labor Epidural Consults Requested none History Height/Weight Height: 5 ft 7 in Weight: 81.647 kg Allergies Allergy/AdvReac Type Severity Reaction Status Date / Time cordell Allergy Difficulty Verified 02/10/24 08:07 Breathing montelukast [From Singulair] Allergy Hives Verified 02/10/24 08:07 moxifloxacin [From Avelox] Allergy Unknown Verified 02/10/24 08:07 Medications Home Medications Medication Instructions Recorded Confirmed Last Taken albuterol sulfate 90 mcg/actuation 1 - 2 puff inhalation QID PRN 11/04/20 02/10/24 02/10/24 aerosol inhaler Shortness Of Breath Or Wheezing mometasone-formoterol HFA 200 2 puff inhalation BID 11/04/20 02/10/24 02/09/24 mcg-5 mcg/actuation aerosol inhaler (Dulera) ferrous sulfate 325 mg (65 mg 325 mg PO BIDM #60 tabs 12/30/23 02/10/24 02/09/24 iron) tablet,delayed release iqyhpsmf-gfh-Ms-FA 1 mg 1 tab PO DAILY 02/10/24 02/10/24 02/09/24 tablet Active Medications Generic Name Dose Route Start Last Admin Trade Name Freq PRN Reason Stop Dose Admin Lactated Ringer's 1,000 mls @ 125 mls/hr 02/10/24 08:38 02/10/24 15:09 Lr IV 02/12/24 08:37 125 mls/hr .Q8H PRN Administration L&D Protocol Protocol Penicillin G Potassium 3 mu/ 106 mls @ 100 mls/hr 02/10/24 11:39 02/10/24 14:08 Dextrose IV 02/20/24 11:38 Infused Q4H PRN Infusion GBS(+) Until Delivery Oxytocin 30 units in 500 mls @ 2 mls/hr 02/10/24 13:23 02/10/24 13:39 Pitocin 30 Units/Nss IV 02/12/24 13:22 0.12 units/hr .Q24H PRN 2 mls/hr Labor Induction/Augmentation Administration Protocol 0.12 UNITS/HR Past Medical History Medical History (Updated 02/10/24 @ 08:03 by Maribel Huang RN) Pyelonephritis complicating Dx 12/2023 Sepsis UTI in , antepartum Right lower quadrant abdominal pain during in third trimester Missed 3 SAB - 09/2009, 02/2023 Asthma Past Family History Family History Father Epilepsy Past Surgical History Surgical History [place] teeth removed Social History Smoking Status: Never smoker Do You Dip or Chew Tobacco: No Hx Alcohol Use: No Hx Substance Use: No substance use type: does not use Physical Exam Vital Signs Last Vital Signs Temp 37.1 C 02/10/24 11:55 Pulse 94 H 02/10/24 15:57 Resp 20 02/10/24 11:55 BP 108/60 02/10/24 15:57 Pulse Ox 98 02/10/24 15:53 Testing Laboratory Results 02/10/24 09:15
[2024-02-10] MEDS ORDERED: ePHEDrine sulfate 50 MG/ML AMP IV PRN (16:01)
[2024-02-10] MEDS ORDERED: SODIUM CHLORIDE 0.9% PF INJ 10 ML VIAL EPI PRN (16:01)
[2024-02-10] MEDS ORDERED: LIDOCAINE 2% MPF LOCAL 5 ML VIAL EPI PRN (16:01)
[2024-02-10] MEDS ORDERED: NALOXONE HCL 0.4 MG/1 ML VIAL/CARP IV PRN (16:01)
[2024-02-10] MEDS ORDERED: fentANYL 2 MCG/ML BUPIVacaine 0.125%-NSS 100ML BAG EPI PRN (16:01)
[2024-02-10] MEDS ORDERED: ROPIVACAINE 0.5% PF 5 MG/ML 20 ML VIAL EPI PRN (16:01)
[2024-02-10] MEDS ORDERED: NALBUPHINE HCL 5 MG in SYRINGE 0 ML IV PRN (16:01)
[2024-02-10] MEDS ORDERED: NALOXONE HCL 1 MG in SODIUM CHLORIDE 0.9% 1,000 ML IV PRN (16:01)
[2024-02-10] MEDS ORDERED: fentaNYL citrate PF 100 MCG/2 ML VIAL EPI PRN (16:01)
[2024-02-10] MEDS ORDERED: diphenhydrAMINE 50 MG/ML VIAL IV PRN (16:01)
[2024-02-10] MEDS ORDERED: BUPIVACAINE 0.25% PF 30 ML VIAL EPI PRN (16:01)
[2024-02-10] MEDS: LIDOCAINE 2%/EPINEPHRINE 1:200,000 20 ML PF EPI STA (16:53)
[2024-02-10] MEDS: SODIUM CHLORIDE 0.9% PF INJ 10 ML VIAL EPI STA (16:53)
[2024-02-10] MEDS: fentaNYL citrate PF 100 MCG/2 ML VIAL EPI STA (16:53)
[2024-02-10] MEDS: BUPIVACAINE 0.25% PF 30 ML VIAL EPI STA (16:53)
[2024-02-10] MEDS: ePHEDrine sulfate 50 MG/ML AMP ONE (18:59)
[2024-02-10] MEDS: METHYLERGONOVINE MALEATE 0.2 MG/ML AMP ONE (21:18)
[2024-02-10] MEDS ORDERED: bisacodyL 10 MG SUPP PR PRN (21:40)
[2024-02-10] MEDS ORDERED: OXYTOCIN 30 UNITS/NSS 30 UNITS/500 ML BAG IV PRN (21:40)
[2024-02-10] MEDS ORDERED: HYDROCORTISONE ACETATE 25 MG SUPP PR PRN (21:40)
[2024-02-10] MEDS ORDERED: oxyCODONE/ACETAMINOPHEN 5mg/325mg TAB PO PRN (21:40)
[2024-02-10] MEDS ORDERED: ACETAMINOPHEN W/CODEINE #3 1 TAB PO PRN (21:40)
[2024-02-10] MEDS ORDERED: BENZOCAINE 20% SPRY 85 APPLN/85 GM CAN EXT PRN (21:40)
[2024-02-10] MEDS ORDERED: ACETAMINOPHEN 325 MG TAB PO PRN (21:40)
--- NOTE | 2024-02-10 21:47 | Delivery Summary ---
Vaginal Delivery Summary Date of Service February 10, 2024 Vaginal Delivery Summary Patient is a 8 para 5. Patient was brought in for induction at term. On admission the cervix was about 3 to 4 cm. Induction was accomplished with 1 p.o. Cytotec 50 mcg. Followed by IV Pitocin. Patient received epidural anesthesia for pain control. Patient also received prophylactic penicillin soon after she arrived on maternity. Had remained high through most of the labor. Membranes were ruptured at about 5 to 6 cm. There was a large amount of amniotic fluid. Patient then continued to dilate and had stayed relatively high till the end patient started pushing with the head at about a -1 with full dilatation. Patient brought the head down eventually crowned the head. The head then retracted. was suctioned through the mouth and the nose. And a severe shoulder dystocia was again encountered. We used maternal flexion of the thighs to the chest. We also used suprapubic pressure. These efforts were unsuccessful and dislodging the anterior shoulder. I then reached posteriorly and put my finger under the babies axilla with the hand on the back. And I pulled down and rotated it in a clockwise fashion. With this maneuver the head came down significantly. The anterior shoulder was dislodged. The infant then rotated spontaneously in the opposite direction and we are able to deliver without much difficulty. breeds cried spontaneously. The cord was allowed to pulse for 1 minute. Infant used both arms immediately. Calculated blood loss was 186 mL. Inspection of the perineum revealed a first-degree laceration. This was sutured anatomically with 2-0 Vicryl. The vaginal mucosa was approximated Aldea beyond the hymenal ring with 2-0 Vicryl. Deep sutures used approximate the bulbocavernosus muscles. 2 deep sutures used approximate the perineal body. And a running subcuticular sutures used approximate the perineal skin edges following this hemostasis was good patient Toller procedure well.
[2024-02-10] MEDS: METHYLERGONOVINE MALEATE 0.2 MG/ML AMP IM ONE (22:55)
[2024-02-10] MEDS: IBUPROFEN 600 MG TAB PO PRN (23:10)
[2024-02-10] MEDS ORDERED: SODIUM CHLORIDE 0.9% 250 ML IV PRN (23:40)
--- NOTE | 2024-02-10 23:42 | Anesthesia Procedure Note ---
Date of Service February 10, 2024 Anesthesia Post Epidural Note Vital Signs Vital Signs: Temp Pulse Resp BP Pulse Ox 36.9 C 80 18 121/66 91 02/10/24 21:38 02/10/24 23:28 02/10/24 21:38 02/10/24 23:28 02/10/24 21:03 Pain Intensity Abdomen: Pain Intensity: 5 Notes Mental Status: alert / awake / arousable Nausea / Vomiting: adequately controlled Pain: adequately controlled Airway Patency, RR, SpO2: stable & adequate BP & HR: stable & adequate Hydration State: stable & adequate Neuraxial Anesthesia: was administered and sensory block is resolving Anesthetic Complications: no major complications apparent and Pt Satisfied with anesthetic care Epidural: Removed without complications and With tip intact
[2024-02-11 06:40] LABS: Hematocrit (blood only) 30.5 % (37.0-47.0); Hemoglobin 9.8 g/dl (12.0-16.0); Mean Corpuscular Hemoglobin 25.7 pg (25.0-34.0); Mean Corpuscular Hgb Conc 32.1 g/dL (32.0-36.0); Mean Corpuscular Volume 80.1 fL (80.0-100.0); Mean Platelet Volume 11.1 fL (9.4-12.4); Platelet Count 208 K/uL (130-400); RDW Coefficient of Variation 14.7 % (11.5-14.5); RDW Standard Deviation 42.8 fL (36.4-46.3); Red Blood Count 3.81 M/uL (4.20-5.40); White Blood Count 12.29 K/ul (4.8-10.8)
[2024-02-11] MEDS: DOCUSATE SODIUM 100 MG CAP PO SCH (08:25)
[2024-02-11] MEDS: PRENATAL VITAMIN 1 TAB PO SCH (08:26)
[2024-02-11] MEDS: DIPHTHER/TETAN/PERTUS Vaccine (Tdap, Adol/Adult) 0.5mL IM ONE (08:27)
--- NOTE | 2024-02-11 09:21 | Obstetrical Progress Note ---
Date of Service February 11, 2024 Assessment & Plan Admission and Anticipated Discharge Date Admission Date: February 10, 2024 Subjective Patient is seen and examined. She feels well, no complaints. Ambulating without dizziness Voiding without difficulty Tolerating regular diet with out N&V Bleeding is minimal No fever/ chills/ CP/ SOB/ N&V/ Leg pain Breast feeding without problems Lab Results 02/10/24 02/11/24 Range/Units 09:15 06:15 WBC 8.58 12.29 H (4.8-10.8) K/ul RBC 3.77 L 3.81 L (4.20-5.40) M/uL Hgb 9.7 L 9.8 L (12.0-16.0) g/dl Hct 30.3 L 30.5 L (37.0-47.0) % MCV 80.4 80.1 (80.0-100.0) fL MCH 25.7 25.7 (25.0-34.0) pg MCHC 32.0 32.1 (32.0-36.0) g/dL RDW Std Deviation 43.3 42.8 (36.4-46.3) fL RDW Coeff of Liz 14.9 H 14.7 H (11.5-14.5) % Plt Count 230 208 (130-400) K/uL MPV 10.9 11.1 (9.4-12.4) fL Crossmatch See Detail Vital Signs Height Weight Body Mass Index Blood Pressure Blood Pressure Position Temperature Temperature Source 5 ft 7 in 81.647 kg 28.1 107/70 Semi-fowlers 36.8 C Oral 02/10/24 16:01 02/10/24 16:01 02/10/24 08:00 02/11/24 07:25 02/11/24 07:25 02/11/24 07:25 02/11/24 07:25 Pulse Rate Respiratory Rate Pulse Oximetry 66 18 96 02/11/24 07:25 02/11/24 07:25 02/11/24 07:25 PE: General: Alert, orientedx3, NAD Abd: soft, NT, fundus firm, below Umbilicus Perineum intact, Lochia rubra minimal Ext; NT, no edema AP: 39 yo s/p , ppd# 1 VSS Afebrile doing well Continue routine care Desires d/c tonight All questions were answered D/C home after 24 hours Results & Data Vital Signs (Past 12 Hours) Vital Signs Temp Pulse Pulse Pulse Resp BP BP 02/11/24 07:25 36.8 C 66 18 107/70 02/11/24 03:16 36.9 C 62 18 131/83 02/11/24 00:01 36.9 C 69 18 119/80 02/10/24 23:28 80 121/66 02/10/24 22:58 86 115/73 02/10/24 22:43 73 124/82 02/10/24 22:27 67 114/58 L 02/10/24 22:12 60 125/68 02/10/24 21:43 76 124/59 L 02/10/24 21:38 18 02/10/24 21:38 36.9 C 18 Pulse Ox O2 Del Method 02/11/24 07:25 96 Room Air 02/11/24 03:16 97 Room Air 02/11/24 00:01 98 Room Air 02/10/24 23:28 02/10/24 22:58 02/10/24 22:43 02/10/24 22:27 02/10/24 22:12 02/10/24 21:43 02/10/24 21:38 02/10/24 21:38
[2024-02-11] MEDS: ACETAMINOPHEN 325 MG TAB PO PRN (10:21)
[2024-02-11] MEDS: bisacodyL 5 MG TABEC PO SCH (20:55)
--- NOTE | 2024-02-17 07:52 | Coding Query ---
CODING QUERY To promote full compliance with coding requirements relating to patient care, provider participation is requested in all cases of auto wrecker uncertainty. Please assist us with the question(s) below: Coding Question(s): Delivery report states first degree lac, however, muscles were reapproximated. Clarify, per the following info from report, if this is a first or second degree lac. (Inspection of the perineum revealed a first-degree laceration. This was sutured anatomically with 2-0 Vicryl. The vaginal mucosa was approximated Aldea beyond the hymenal ring with 2-0 Vicryl. Deep sutures used approximate the bulbocavernosus muscles. 2 deep sutures used approximate the perineal body. And a running subcuticular sutures used approximate the perineal skin edges following this hemostasis was good patient Toller procedure well.) Physician's Response(s): first degree laceration Thank you Lori Marshall Principal Diagnosis: "that condition established after study, to be chiefly responsible for occasioning the admission of the patient to the hospital for care." Co-Existing Principal Diagnosis: "when two or more diagnoses equally meet the criteria for principal diagnosis as determined by the circumstances of admission, diagnostic work up, and/or therapy provided, and the Alphabetic Index, Tabular List, or another coding guideline does not provide sequencing direction, any one of the diagnoses may be sequenced first." "When the physician has documented what appears to be a current diagnosis in the body of the record, but has not included the diagnosis in the final diagnostic statement, the physician should be asked whether the diagnosis should be added." (Source [facility] 2 QTR90. p3-4) NICHOLAS
== END 2024-02-11 22:24 | disposition home health service (06) | DRG 807 ==
LOC: 4S1 07:42 → 4E2 02-11 00:34